=== PATIENT | male | born 1940 | race Caucasian/White ===

== ENCOUNTER 2016-11-09 02:36 | Observation (INO) | payer MEDICARE ==
[~2016-11-09] VITALS: Ht 167.6 cm; Wt 50.0 kg
[2016-11-09] VITALS (8 sets, daily range): BP systolic 168–186; BP diastolic 82–106; PULSE 91–104; RESP 18–23; TEMP 98.3; O2SAT 95–97
[~2016-11-09 02:36] MED LIST: ATOR20TA PO; LEVA750T PO; LORTA5 PO; MORP1INJ45 PO; PRED5 PO; PROT40TA PO; REST30CA PO; SUCR1TAB6 PO; TAMS0.4C67 PO; TRAM50TA PO; TRAZ50TA4 PO
[2016-11-09] MEDS ORDERED: SODIUM CHLOR 0.9% 1000 ML INJ 800 ML IV ONE (03:04)
[2016-11-09] MEDS ORDERED: VANCOMYCIN INJ 1,000 MG in SODIUM CHLOR 0.9% 250 ML INJ 250 ML IV STA (03:04)
[2016-11-09] MEDS ORDERED: AZTREONAM INJ 2,000 MG in SODIUM CHLORIDE 0.9% INJ 100 ML IV STA (03:04)
[2016-11-09] MEDS ORDERED: SODIUM CHLOR 0.9% 1000 ML INJ 1,000 ML IV ONE (03:04)
[2016-11-09] MEDS ORDERED: metroNIDAZOLE 500 MG INJ 100 ML IV STA (03:04)
[2016-11-09 03:46] LABS: AUTOMATED NEUTROPHIL # 14.7 TH/MM3 (1.8-7.7); BASOPHIL % 0.1 % (0.0-2.0); EOSINOPHIL # 0.3 TH/MM3 (0-0.4); EOSINOPHIL % 1.7 % (0.0-4.0); HEMO FLAGS DIFF FINAL; LYMPH % 3.9 % (9.0-44.0); LYMPHOCYTE # 0.7 TH/MM3 (1.0-4.8); MONO % 6.9 % (0.0-8.0); NEUT % 87.4 % (16.0-70.0); PLATELET COUNT 639 TH/MM3 (150-450); RED BLOOD COUNT 3.07 MIL/MM3 (4.50-5.90); RED CELL DISTRIBUTION WIDTH 14.6 % (11.6-17.2); WHITE BLOOD COUNT 16.8 TH/MM3 (4.0-11.0)
[2016-11-09 03:51] LABS: BLOOD, URINE NEG (NEG); GLUCOSE,URINE NEG (NEG); KETONE, URINE NEG (NEG); NITRITE,URINE NEG (NEG); PH, URINE 7.5 (5.0-8.5); URINE COLOR YELLOW (YELLW/STRAW)
[2016-11-09 03:52] LABS: COMMENT (UR) CATH-CULT NOT IND; CULTURE IF INDICATED CATH CULTURE NOT IND
[2016-11-09] MEDS ORDERED: IPRASOL INH (03:57)
[2016-11-09] MEDS ORDERED: MULT1TAB85 PO (03:57)
[2016-11-09] MEDS ORDERED: PROTPAK PO (03:57)
[2016-11-09] MEDS ORDERED: TEMA15CA PO ×2 (03:57→13:36)
[2016-11-09] MEDS ORDERED: ACET325T PO (03:57)
[2016-11-09] MEDS ORDERED: PRED10 PO (03:57)
[2016-11-09] MEDS ORDERED: HYDR-3288 PO ×2 (03:57→13:36)
[2016-11-09] MEDS ORDERED: METR500T10 PO (03:57)
[2016-11-09] MEDS ORDERED: ROBISYP8 PO (03:57)
[2016-11-09] MEDS ORDERED: LEVO500T3 PO (03:57)
[2016-11-09 04:19] LABS: ALT (GPT) 17 U/L (12-78); ANION GAP 6 MEQ/L (5-15); AST (GOT) 12 U/L (15-37); BICARBONATE 33.6 MEQ/L (21.0-32.0); BLOOD UREA NITROGEN 11 MG/DL (7-18); CHLORIDE 99 MEQ/L (98-107); GLOMERULAR FILTRATION RATE 117 ML/MIN (>89); POTASSIUM 3.5 MEQ/L (3.5-5.1); SODIUM (NA) 139 MEQ/L (136-145)
[2016-11-09 04:21] LABS: ALKALINE PHOSPHATASE 89 U/L (45-117); TOTAL BILIRUBIN ADULT 0.3 MG/DL (0.2-1.0)
[2016-11-09] MEDS ORDERED: IOHEXOL 350 MG/ML 10 ML VIAL (for RAD DIAG) IV ONE (04:35)
--- NOTE | 2016-11-09 05:23 | RADRPT ---
EXAM DATE/TIME: 11/09/2016 04:34 [facility] COMPARISON: No previous studies available for comparison. INDICATIONS : J-tube accidently pulled out. IV CONTRAST: 80 cc Omnipaque 350 (iohexol) IV ORAL CONTRAST: No oral contrast ingested. RADIATION DOSE: 5.76 CTDIvol (mGy) MEDICAL HISTORY : Hypertension. Gastroesophageal reflux disease. Cardiovascular disease SURGICAL HISTORY : Appendectomy. Cholecystectomy.Colon resection.Partial Gastrectomy. Kyphoplasty. ENCOUNTER: Initial ACUITY: 1 day PAIN SCALE: 0/10 LOCATION: abdomen TECHNIQUE: Volumetric scanning of the abdomen and pelvis was performed. Using automated exposure control and ad justment of the mA and/or kV according to patient size, radiation dose was kept as low as reasonably achievable to obtain optimal diagnostic quality images. FINDINGS: Moderate size bilateral pleural effusions are identified. There is subsegmental atelectasis in the b oth bases. The liver and spleen are normal in size and no focal defects are identified. The gallbladd er is absent. The pancreas demonstrates normal contour without evidence of mass or ductal dilatation. The adrenal glands and kidneys appear normal bilaterally. No hydronephrosis or mass lesions are iden tified. Examination of the pelvis demonstrates no evidence of free fluid or pelvic mass. No abnormally enlarg ed inguinal or retroperitoneal lymph nodes are present. The bladder is unremarkable. There is a moder ate amount of fecal material throughout the colon. CONCLUSION: 1. No evidence of acute abdominal or pelvic process. No masses are identified. 2. Moderate bilateral effusions 3. Constipation Jayson Kwan MD on November 09, 2016 at 5:18 Board Certified Radiologist. This report was verified electronically.
--- NOTE | 2016-11-09 05:29 | PD ---
HPI Chief Complaint: Clinical Coordinator Problem Time Seen by Provider: 02:50 Travel History International Travel<30 days: No Contact w/Intl Traveler<30days: No Traveled to known affect area: No History of Present Illness HPI The patient is 76 years old. He was discharged from [facility] a few days ago. He was admitted for failure to thrive evidently. Past medical history includes GERD, reflux esophagitis, recent weight loss of 40 pounds EPH as well. He's also had multiple abdominal surgeries including cholecystectomy appendectomy a Billroth II gastric surgery small bowel resection and bilateral knee replacements. He arrives to the ER [facility] because at his rehabilitation facility accidentally discontinued his gastric tube. The ER he reports pain with palpation of the abdominal wall. Otherwise she offers no specific complaint. PFSH Past Medical History Arthritis: Yes Cancer: Yes (BASAL CELL CANCER SKIN) Cardiovascular Problems: Yes (HEART MUMUR) Diabetes: No Diminished Hearing: No Endocrine: No Glaucoma: No Genitourinary: No Hepatitis: No Hiatal Hernia: No Hypertension: Yes Immune Disorder: No Medical other: Yes (ACID REFLUX) Musculoskeletal: No Neurologic: No Psychiatric: No Reproductive: No Respiratory: Yes (PNUEMONIA) Immunizations Current: Yes Thyroid Disease: No Tetanus Vaccination: < 5 Years Influenza Vaccination: Yes Past Surgical History Abdominal Surgery: Yes (APPY-PARTIAL GASTRECTOMY-INTESTINE SURGERY- CHOLECYSTECTOMY) Cholecystectomy: Yes Oral Surgery: Yes (TONSILS) Pacemaker: No Tonsillectomy: Yes Other Surgery: Yes (LUNG BIOPSY, SKIN BIOPSY BACK, J TUBE) Social History Alcohol Use: No Tobacco Use: No (QUIT 20 YRS AGO) Substance Use: No Allergies-Medications (Allergen,Severity, Reaction): Coded Allergies: Cleocin (Verified Allergy, Severe, RASH SWELLING, 11/09/16) Erythromycin (Verified Allergy, Severe, RASH SWELLING, 11/09/16) Penicillin (Verified Allergy, Severe, RASH SWELLING, 11/09/16) Reported Meds & Prescriptions Reported Meds & Active Scripts Active Reported Acetaminophen 325 Mg Tab 650 Mg PO Q4H PRN Metronidazole 500 Mg Tab 500 Mg PO TID Temazepam 15 Mg Cap 15 Mg PO HS PRN Duoneb (Ipratropium-Albuterol Neb) 0.5-2.5 Mg/3 Ml Neb 1 Nebule INH Q4HR NEB Levofloxacin 500 Mg Tab 500 Mg PO DAILY Prednisone 10 Mg Tab 10 Mg PO DAILY Protonix Liq (Pantoprazole Sodium) 40 Mg Pkt 40 Mg PO AC BREAKFAST Multivitamin Men (Multiple Vitamins W/ Minerals) 1 Tab Tab 1 Tab PO DAILY [place] (Hydrocodone-Acetaminophen) 7.5-325 mg Tab 1 Tab PO Q4H PRN Robitussin Peak Cold Dm 100-10 mg/5Ml (Dextromethorphan-Guaifenesin) 1 Syp Syp 10 Ml PO Q6HR PRN Review of Systems Except as stated in HPI: all other systems reviewed are Neg Physical Exam Narrative GENERAL: 76-year-old male well-nourished well-developed cooperative blood SKIN: Warm and dry. Along the anterior abdominal wall at site of insertion of his gastric tube there is some dermatitis presumably secondary to adhesive from dressing as well as tenderness and erythema. Purulent discharge appears expressible from the sight of insertion. HEAD: Atraumatic. Normocephalic. EYES: Pupils equal and round. No scleral icterus. No injection or drainage. ENT: No nasal bleeding or discharge. Mucous membranes pink and moist. NECK: Trachea midline. No JVD. CARDIOVASCULAR: Regular rate and rhythm. No murmur appreciated. RESPIRATORY: No accessory muscle use. Clear to auscultation. Breath sounds equal bilaterally. GASTROINTESTINAL: Abdomen soft, non-tender, nondistended. Hepatic and splenic margins not palpable. MUSCULOSKELETAL: No obvious deformities. No clubbing. No cyanosis. No edema. NEUROLOGICAL: Awake and alert. No obvious cranial nerve deficits. Motor grossly within normal limits. Normal speech. PSYCHIATRIC: Appropriate mood and affect; insight and judgment normal. Data Data Last Documented VS Vital Signs Date Time Temp Pulse Resp B/P Pulse Ox O2 Delivery O2 Flow Rate FiO2 11/09/16 03:10 97 Nasal Cannula 2 11/09/16 03:10 19 11/09/16 02:39 98.3 99 186/84 Orders Complete Blood Count With Diff (11/09/16 03:04) Comprehensive Metabolic Panel (11/09/16 03:04) Lactic Acid Sepsis Protocol (11/09/16 03:04) Urinalysis - C+S If Indicated (11/09/16 03:04) Blood Culture (11/09/16 03:04) Wound Culture And Gram Stain (11/09/16 03:04) Blood Glucose (11/09/16 03:04) Ecg Monitoring (11/09/16 03:04) Iv Access Insert/Monitor (11/09/16 03:04) Oximetry (11/09/16 03:04) Oxygen Administration (11/09/16 03:04) Ct Abd/Pel W Iv Contrast(Rout) (11/09/16 03:04) Aztreonam Inj (Azactam Inj) (11/09/16 03:04) Metronidazole 500 Mg Inj (Flagyl 500 Mg (11/09/16 03:04) Vancomycin Inj (Vancomycin Inj) (11/09/16 03:04) Sodium Chlor 0.9% 1000 Ml Inj (Ns 1000 M (11/09/16 03:04) Sodium Chlor 0.9% 1000 Ml Inj (Ns 1000 M (11/09/16 03:04) Iohexol 350 Inj (Omnipaque 350 Inj) (11/09/16 04:35) Hydromorphone Pf Inj (Dilaudid Pf Inj) (11/09/16 05:30) Admit Order (Ed Use Only) (11/09/16 05:44) Labs Laboratory Tests Test 11/09/16 11/09/16 03:00 03:15 White Blood Count 16.8 TH/MM3 Red Blood Count 3.07 MIL/MM3 Hemoglobin 8.9 GM/DL Hematocrit 27.0 % Mean Corpuscular Volume 88.0 FL Mean Corpuscular Hemoglobin 29.0 PG Mean Corpuscular Hemoglobin 33.0 % Concent Red Cell Distribution Width 14.6 % Platelet Count 639 TH/MM3 Mean Platelet Volume 7.0 FL Neutrophils (%) (Auto) 87.4 % Lymphocytes (%) (Auto) 3.9 % Monocytes (%) (Auto) 6.9 % Eosinophils (%) (Auto) 1.7 % Basophils (%) (Auto) 0.1 % Neutrophils # (Auto) 14.7 TH/MM3 Lymphocytes # (Auto) 0.7 TH/MM3 Monocytes # (Auto) 1.2 TH/MM3 Eosinophils # (Auto) 0.3 TH/MM3 Basophils # (Auto) 0.0 TH/MM3 CBC Comment DIFF FINAL Differential Comment Sodium Level 139 MEQ/L Potassium Level 3.5 MEQ/L Chloride Level 99 MEQ/L Carbon Dioxide Level 33.6 MEQ/L Anion Gap 6 MEQ/L Blood Urea Nitrogen 11 MG/DL Creatinine 0.66 MG/DL Estimat Glomerular Filtration 117 ML/MIN Rate Random Glucose 95 MG/DL Lactic Acid Level 0.8 mmol/L Calcium Level 7.7 MG/DL Total Bilirubin 0.3 MG/DL Aspartate Amino Transf 12 U/L (AST/SGOT) Alanine Aminotransferase 17 U/L (ALT/SGPT) Alkaline Phosphatase 89 U/L Total Protein 5.3 GM/DL Albumin 2.1 GM/DL Urine Color YELLOW Urine Turbidity CLEAR Urine pH 7.5 Urine Specific [place] 1.013 Urine Protein NEG mg/dL Urine Glucose (UA) NEG mg/dL Urine Ketones NEG mg/dL Urine Occult Blood NEG Urine Nitrite NEG Urine Bilirubin NEG Urine Urobilinogen LESS THAN 2.0 MG/DL Urine Leukocyte Esterase NEG Urine RBC LESS THAN 1 /hpf Urine WBC 1 /hpf Microscopic Urinalysis Comment CATH-CULT NOT IND MDM Medical Decision Making Medical Screen Exam Complete: Yes Emergency Medical Condition: Yes Medical Record Reviewed: Yes Differential Diagnosis Sepsis, abdominal wall abscess, intraperitoneal abscess, G tube discontinuation Narrative Course CBC & BMP Diagram 11/09/16 03:00 Albumen is 2.1 Lactic acid is 0.8 Urinalysis normal Last 24 hours Impressions Abdomen/Pelvis CT 11/09/16 0304 Signed Impressions: Service Date/Time: Wednesday, November 09, 2016 04:34 - CONCLUSION: 1. No evidence of acute abdominal or pelvic process. No masses are identified. 2. Moderate bilateral effusions 3. Constipation Jayson Kwan MD Vancomycin, Flagyl and aztreonam started. Blood cultures drawn. Patient will be admitted for IV hydration until time of placement of gastric tube. Case d/w Dr Brasher [facility]. Sepsis Criteria SIRS Criteria (2 or more): Heart rate over 90, WBC > 26303, < 4000 or > 10% bands Sepsis Criteria (SIRS+source): Infect source susp/known Diagnosis Primary Impression: PEG (percutaneous endoscopic gastrostomy) adjustment/replacement/removal Admitting Information Admitting Physician Requests: Admit Gibson Naidu MD Nov 09, 2016 05:29
[2016-11-09] MEDS ORDERED: HYDROmorphone HCL PF 1 MG/ML VIAL IV PUSH ONE (05:30)
[2016-11-09] MEDS ORDERED: NALOXONE HCL 0.4 MG/ML AMP IV PRN (06:15)
[2016-11-09] MEDS ORDERED: SODIUM CHLORIDE 0.9% FLUSH 5 ML FLUSH FLUSH PRN (06:15)
--- NOTE | 2016-11-09 08:28 | HHI.HP ---
[facility] Guillermo Frey MD Admission Diagnosis Sepsis (GI, Pleural Effusions), Gastric Tube Discotinue Diagnoses: Travel History International Travel<30 Days: No Contact w/Intl Traveler <30 Da: No Traveled to Known Affected Are: No History of Present Illness This is a 76-year-old male with a history of arthritis, basal skin cancer, hypertension, GERD and polymyalgia rheumatica, pneumonia in December 2014. Patient is a resident of [facility], on tube feeds when patient' s PEG tube was accidentally discontinued. Patient was then sent to the hospital for failure to try. Per patient, he does not know why he is here. He does not have any symptoms. He denies any chest pain, shortness of breath, palpitations, nausea, vomiting, fever, chills, urinary symptoms or diarrhea, he has a mild stomach pain from the PEG tube insertion chart but otherwise stable. He wants to eat, his appetite. Patient is oriented but a poor historian. Patient also has history of GERD and reflux esophagitis, allegedly lost about 40 pounds recently. Good bowel movements, good gas. Review of Systems ROS Limitations: Poor Historian, Other (All other pertinent systems were reviewed and are negative.) Past Family Social History Past Medical History Arthritis Basal skin cancer Hypertension GERD PMR Reflux esophagitis Past Surgical History Cholecystectomy Partial gastrectomy Tonsillectomy Lung biopsy Skin biopsy Billroth II gastric surgery Small bowel resection Bilateral knee replacement Reported Medications Acetaminophen 325 Mg Tab 650 Mg PO Q4H PRN Metronidazole 500 Mg Tab 500 Mg PO TID Temazepam 15 Mg Cap 15 Mg PO HS PRN Duoneb (Ipratropium-Albuterol Neb) 0.5-2.5 Mg/3 Ml Neb 1 Nebule INH Q4HR NEB Levofloxacin 500 Mg Tab 500 Mg PO DAILY Prednisone 10 Mg Tab 10 Mg PO DAILY Protonix Liq (Pantoprazole Sodium) 40 Mg Pkt 40 Mg PO AC BREAKFAST Multivitamin Men (Multiple Vitamins W/ Minerals) 1 Tab Tab 1 Tab PO DAILY [place] (Hydrocodone-Acetaminophen) 7.5-325 mg Tab 1 Tab PO Q4H PRN Robitussin Peak Cold Dm 100-10 mg/5Ml (Dextromethorphan-Guaifenesin) 1 Syp Syp 10 Ml PO Q6HR PRN Allergies: Coded Allergies: Cleocin (Verified Allergy, Severe, RASH SWELLING, 11/09/16) Erythromycin (Verified Allergy, Severe, RASH SWELLING, 11/09/16) Penicillin (Verified Allergy, Severe, RASH SWELLING, 11/09/16) Family History Negative for CA Social History Quit smoking 22 years ago, no significant alcohol use Physical Exam Vital Signs Vital Signs Date Time Temp Pulse Resp B/P Pulse Ox O2 Delivery O2 Flow Rate FiO2 11/09/16 06:19 96 Nasal Cannula 3.00 11/09/16 03:10 97 Nasal Cannula 2 11/09/16 03:10 19 97 Nasal Cannula 2 11/09/16 02:39 98.3 99 22 186/84 97 Physical Exam GENERAL: Not in acute distress, well-nourished. HEAD: Atraumatic. Normocephalic. No temporal or scalp tenderness. EYES: PERRL, full EOMs, no jaundice, nonicteric, pink conjunctivae without injection, moist mucosa ENT: Nose without bleeding, purulent drainage. Throat without erythema, tonsillar hypertrophy or exudate. Uvula midline. Airway patent. NECK: Trachea midline, no mass, no obvious thyromegaly. No JVD or lymphadenopathy. CARDIOVASCULAR: Regular rate and rhythm without murmurs, gallops, or rubs. RESPIRATORY: Clear to auscultation with normal respiratory effort. Breath sounds equal bilaterally. No use of accessory muscles of respiration. GASTROINTESTINAL: Abdomen soft, normal bowel sounds, non-tender, nondistended. No hepato-splenomegaly or palpable mass. PEG tube site clean but with surrounding erythema, almost like a Vanda skin infection. No bleeding. No discharge MUSCULOSKELETAL: Extremities without clubbing, cyanosis, or edema.. No calf tenderness. Distal pulses intact, 2+ bilaterally. INTEGUMENTARY: Warm and dry, no rash of generalized distribution. NEUROLOGICAL: Awake, alert, oriented 3. No obvious cranial nerve deficits. Moves all 4 extremities Laboratory Laboratory Tests Test 11/09/16 11/09/16 03:00 03:15 White Blood Count 16.8 Red Blood Count 3.07 Hemoglobin 8.9 Hematocrit 27.0 Mean Corpuscular Volume 88.0 Mean Corpuscular Hemoglobin 29.0 Mean Corpuscular Hemoglobin 33.0 Concent Red Cell Distribution Width 14.6 Platelet Count 639 Mean Platelet Volume 7.0 Neutrophils (%) (Auto) 87.4 Lymphocytes (%) (Auto) 3.9 Monocytes (%) (Auto) 6.9 Eosinophils (%) (Auto) 1.7 Basophils (%) (Auto) 0.1 Neutrophils # (Auto) 14.7 Lymphocytes # (Auto) 0.7 Monocytes # (Auto) 1.2 Eosinophils # (Auto) 0.3 Basophils # (Auto) 0.0 CBC Comment DIFF FINAL Differential Comment Sodium Level 139 Potassium Level 3.5 Chloride Level 99 Carbon Dioxide Level 33.6 Anion Gap 6 Blood Urea Nitrogen 11 Creatinine 0.66 Estimat Glomerular Filtration 117 Rate Random Glucose 95 Lactic Acid Level 0.8 Calcium Level 7.7 Total Bilirubin 0.3 Aspartate Amino Transf 12 (AST/SGOT) Alanine Aminotransferase 17 (ALT/SGPT) Alkaline Phosphatase 89 Total Protein 5.3 Albumin 2.1 Urine Color YELLOW Urine Turbidity CLEAR Urine pH 7.5 Urine Specific [place] 1.013 Urine Protein NEG Urine Glucose (UA) NEG Urine Ketones NEG Urine Occult Blood NEG Urine Nitrite NEG Urine Bilirubin NEG Urine Urobilinogen LESS THAN 2.0 Urine Leukocyte Esterase NEG Urine RBC LESS THAN 1 Urine WBC 1 Microscopic Urinalysis Comment CATH-CULT NOT IND Date/Time Procedure Status Source Growth 11/09/16 03:15 Gram Stain Received Wound Abdomen Pending 11/09/16 03:15 Wound Culture Received Wound Abdomen Pending 11/09/16 03:15 Aerobic Blood Culture Received Blood Peripheral Pending 11/09/16 03:15 Anaerobic Blood Culture Received Blood Peripheral Pending Result Diagram: 11/09/16 0300 11/09/16 0300 Imaging Last Impressions Abdomen/Pelvis CT 11/09/16 0304 Signed Impressions: Service Date/Time: Wednesday, November 09, 2016 04:34 - CONCLUSION: 1. No evidence of acute abdominal or pelvic process. No masses are identified. 2. Moderate bilateral effusions 3. Constipation Jayson Kwan MD Chest X-Ray 11/09/16 0000 Signed Impressions: Service Date/Time: Wednesday, November 09, 2016 08:36 - CONCLUSION: Small left pleural effusion. Rigo Ortiz MD Assessment and Plan Assessment and Plan This is a 76-year-old male with history of GERD, reflux esophagitis, presenting to the hospital with failure to thrive Failure to thrive-PEG tube accidentally removed, will have speech therapy evaluate the patient , if can take oral feeding, will start with that, start Megace , start calorie counting, start normal saline with D5. Recheck CMP tomorrow. CT scan of the abdomen personally reviewed unremarkable, only showed moderate bilateral effusion. Patient was given vancomycin and Flagyl this year now, doubt infection. Hold off for now. Leukocytosis, possible pneumonia-may be stress induced, rule out infection, continue Levaquin and Flagyl for [facility] from the [facility]. Recheck chest x- ray as above, urinalysis negative, recheck CBC tomorrow. Anemia-check iron panel GERD, reflux esophagitis-Protonix Hypertension-restart metoprolol Bilateral effusion-check chest x-ray, start Lasix, check urine output. Superficial abdominal skin candidiasis-miconazole cream GI prophylaxis: Protonix DVT prophylaxis: Lovenox Physician Certification 2 Midnight Certification Type: Admission for Inpatient Services Order for Inpatient Services The services are ordered in accordance with Medicare regulations or non- Medicare payer requirements, as applicable. In the case of services not specified as inpatient-only, they are appropriately provided as inpatient services in accordance with the 2-midnight benchmark. Estimated LOS (days): 2 days is the estimated time the patient will need to remain in the hospital, assuming treatment plan goals are met and no additional complications. Post-Hospital Plan: [facility] Jaden Tomlinson MD Nov 09, 2016 08:28
[2016-11-09] MEDS ORDERED: DEXT 5%-NACL 0.9% 1000 ML INJ 1,000 ML IV SCH (08:30)
[2016-11-09] MEDS ORDERED: SODIUM CHLORIDE 0.9% FLUSH 5 ML FLUSH FLUSH SCH (09:00)
--- NOTE | 2016-11-09 09:17 | RADRPT ---
EXAM DATE/TIME: 11/09/2016 08:36 [facility] COMPARISON: CHEST PA & LAT, January 09, 2015, 8:41. INDICATIONS : Evaluate for effusion MEDICAL HISTORY : Hypertension. Gastroesophageal reflux disease. Cardiovascular disease. SURGICAL HISTORY : Appendectomy. Cholecystectomy. Colon resection. Partial Gastrectomy. Kyphoplasty. ENCOUNTER: Initial ACUITY: 1 day PAIN SCORE: 0/10 LOCATION: Bilateral chest FINDINGS: PA and lateral views of the chest. Blunting of the left costophrenic sulcus indicating small left ple ural effusion. The lungs are clear. Cardiomediastinal silhouette within normal limits. No evidence of pneumothorax. CONCLUSION: Small left pleural effusion. Rigo Ortiz MD on November 09, 2016 at 9:13 Board Certified Radiologist. This report was verified electronically.
[2016-11-09] MEDS ORDERED: FUROSEMIDE 40 MG/4 ML VIAL IV PUSH ONE (11:00)
[2016-11-09] MEDS ORDERED: ENALAPRILAT 1.25 MG/ML VIAL IV PUSH PRN (11:00)
[2016-11-09] MEDS ORDERED: TEMAZEPAM 15 MG CAP PO PRN (11:00)
--- NOTE | 2016-11-09 11:37 | PD.CAR.PN ---
CVT Progress Note Subjective/Hospital Course: 76-year-old male recently admitted to [facility] for workup placement of the G-tube and related procedures Patient had a rapid decline with the failure to thrive and inability to eat and hands the G-tube placement Apparently a few days ago the G-tube fell out in the long-term and question arises where to go from here G-tube side is minimally open and I do not see any more drainage which might have been there before initially There is some irritation of the skin surrounding the site but no cellulitis or infection Gastroenterology will have to place another G-tube in this gentleman with understanding that he had previous Billroth II resection but on the CT scan the gastric pouch appears to be fairly large There are no issues at this time to be handled by general surgery but I will be available if any intervention is needed Thanks Teena Objective: Vital Signs Date Time Temp Pulse Resp B/P Pulse Ox O2 Delivery O2 Flow Rate FiO2 11/09/16 09:00 96 Nasal Cannula 11/09/16 08:00 98.3 94 18 168/82 96 2 11/09/16 07:00 104 19 175/90 96 Nasal Cannula 3.00 11/09/16 06:19 96 Nasal Cannula 3.00 11/09/16 03:10 97 Nasal Cannula 2 11/09/16 03:10 19 97 Nasal Cannula 2 11/09/16 02:39 98.3 99 22 186/84 97 Labs: Laboratory Tests Test 11/09/16 11/09/16 03:00 03:15 White Blood Count 16.8 TH/MM3 (4.0-11.0) Red Blood Count 3.07 MIL/MM3 (4.50-5.90) Hemoglobin 8.9 GM/DL (13.0-17.0) Hematocrit 27.0 % (39.0-51.0) Mean Corpuscular Volume 88.0 FL (80.0-100.0) Mean Corpuscular Hemoglobin 29.0 PG (27.0-34.0) Mean Corpuscular Hemoglobin 33.0 % Concent (32.0-36.0) Red Cell Distribution Width 14.6 % (11.6-17.2) Platelet Count 639 TH/MM3 (150-450) Mean Platelet Volume 7.0 FL (7.0-11.0) Neutrophils (%) (Auto) 87.4 % (16.0-70.0) Lymphocytes (%) (Auto) 3.9 % (9.0-44.0) Monocytes (%) (Auto) 6.9 % (0.0-8.0) Eosinophils (%) (Auto) 1.7 % (0.0-4.0) Basophils (%) (Auto) 0.1 % (0.0-2.0) Neutrophils # (Auto) 14.7 TH/MM3 (1.8-7.7) Lymphocytes # (Auto) 0.7 TH/MM3 (1.0-4.8) Monocytes # (Auto) 1.2 TH/MM3 (0-0.9) Eosinophils # (Auto) 0.3 TH/MM3 (0-0.4) Basophils # (Auto) 0.0 TH/MM3 (0-0.2) CBC Comment DIFF FINAL Differential Comment Sodium Level 139 MEQ/L (136-145) Potassium Level 3.5 MEQ/L (3.5-5.1) Chloride Level 99 MEQ/L (98-107) Carbon Dioxide Level 33.6 MEQ/L (21.0-32.0) Anion Gap 6 MEQ/L (5-15) Blood Urea Nitrogen 11 MG/DL (7-18) Creatinine 0.66 MG/DL (0.60-1.30) Estimat Glomerular Filtration 117 ML/MIN Rate (>89) Random Glucose 95 MG/DL (74-106) Lactic Acid Level 0.8 mmol/L (0.4-2.0) Calcium Level 7.7 MG/DL (8.5-10.1) Total Bilirubin 0.3 MG/DL (0.2-1.0) Aspartate Amino Transf 12 U/L (15-37) (AST/SGOT) Alanine Aminotransferase 17 U/L (12-78) (ALT/SGPT) Alkaline Phosphatase 89 U/L (45-117) Total Protein 5.3 GM/DL (6.4-8.2) Albumin 2.1 GM/DL (3.4-5.0) Urine Color YELLOW (YELLW/STRAW) Urine Turbidity CLEAR (CLEAR) Urine pH 7.5 (5.0-8.5) Urine Specific [place] 1.013 (1.002-1.035) Urine Protein NEG mg/dL (NEG-TRACE) Urine Glucose (UA) NEG mg/dL (NEG) Urine Ketones NEG mg/dL (NEG) Urine Occult Blood NEG (NEG) Urine Nitrite NEG (NEG) Urine Bilirubin NEG (NEG) Urine Urobilinogen LESS THAN 2.0 MG/DL (LESS THAN 2.0) Urine Leukocyte Esterase NEG (NEG) Urine RBC LESS THAN 1 /hpf (0-3) Urine WBC 1 /hpf (0-5) Microscopic Urinalysis Comment CATH-CULT NOT IND Result Diagram: 11/09/1629911/09/16299 Graham Mcallister MD Nov 09, 2016 11:37
[2016-11-09] MEDS ORDERED: ENOXAPARIN SODIUM 40 MG/0.4 ML SYRINGE SQ SCH (12:00)
[2016-11-09] MEDS ORDERED: MEGESTROL ACETATE SUSP 400 MG/10 ML CUP PO SCH (12:00)
[2016-11-09] MEDS ORDERED: PANTOPRAZOLE SOD 40 MG DELAYED RELEASE TAB PO SCH (12:00)
[2016-11-09] MEDS ORDERED: METOPROLOL TARTRATE 25 MG TAB PO SCH (12:00)
[2016-11-09] MEDS ORDERED: metroNIDAZOLE 500 MG TAB PO SCH (13:00)
--- NOTE | 2016-11-09 13:13 | HHI.PR ---
Subjective Subjective Notes Pt here from [facility], after feeding jejeunostomy tube fell out. he has no recall of events. His daughter is at bedside, she is always anxious. he also has an I and of L abdominal wall abscess, which no one commented on though at least three physician's have seen him here. he has not been eating much, he has been getting nocturnal tube feeds. Objective Vitals/I&O Vital Signs Date Time Temp Pulse Resp B/P Pulse Ox O2 Delivery O2 Flow Rate FiO2 11/09/16 12:00 104 23 174/87 97 Nasal Cannula 2 11/09/16 08:00 98.3 Labs Laboratory Tests Test 11/09/16 11/09/16 03:00 03:15 White Blood Count 16.8 Red Blood Count 3.07 Hemoglobin 8.9 Hematocrit 27.0 Mean Corpuscular Volume 88.0 Mean Corpuscular Hemoglobin 29.0 Mean Corpuscular Hemoglobin 33.0 Concent Red Cell Distribution Width 14.6 Platelet Count 639 Mean Platelet Volume 7.0 Neutrophils (%) (Auto) 87.4 Lymphocytes (%) (Auto) 3.9 Monocytes (%) (Auto) 6.9 Eosinophils (%) (Auto) 1.7 Basophils (%) (Auto) 0.1 Neutrophils # (Auto) 14.7 Lymphocytes # (Auto) 0.7 Monocytes # (Auto) 1.2 Eosinophils # (Auto) 0.3 Basophils # (Auto) 0.0 CBC Comment DIFF FINAL Differential Comment Sodium Level 139 Potassium Level 3.5 Chloride Level 99 Carbon Dioxide Level 33.6 Anion Gap 6 Blood Urea Nitrogen 11 Creatinine 0.66 Estimat Glomerular Filtration 117 Rate Random Glucose 95 Lactic Acid Level 0.8 Calcium Level 7.7 Total Bilirubin 0.3 Aspartate Amino Transf 12 (AST/SGOT) Alanine Aminotransferase 17 (ALT/SGPT) Alkaline Phosphatase 89 Total Protein 5.3 Albumin 2.1 Urine Color YELLOW Urine Turbidity CLEAR Urine pH 7.5 Urine Specific [place] 1.013 Urine Protein NEG Urine Glucose (UA) NEG Urine Ketones NEG Urine Occult Blood NEG Urine Nitrite NEG Urine Bilirubin NEG Urine Urobilinogen LESS THAN 2.0 Urine Leukocyte Esterase NEG Urine RBC LESS THAN 1 Urine WBC 1 Microscopic Urinalysis Comment CATH-CULT NOT IND Date/Time Procedure Status Source Growth 11/09/16 03:15 Gram Stain - Final Resulted Wound Abdomen 11/09/16 03:15 Wound Culture Resulted Wound Abdomen Pending 11/09/16 03:15 Aerobic Blood Culture Received Blood Peripheral Pending 11/09/16 03:15 Anaerobic Blood Culture Received Blood Peripheral Pending Radiology Ct abdomen and pelvis was reviewed, no acute intra abdominal process seen. Cardiovascular: Regular Lungs: Clear Abdomen: Other (soft and non distended, mild tenderness around J tube site, skin irritation present, c/w small intestinal contents chronically draining on the skin.), Post-op tenderness (In L abdomen there is an I and D site with purulent drainage, there is no erythema, which is completely improved.) Extremities: No edema, Perfused A/P Assessment and Plan Postop day 16 from revision B2 to tray en y Gastro jejeunostomy, feeding j tube , and I and d L abdominal wall abscess. His abdominal wall has less erythema. I replaced a 16 icelandic jejeunostomy tube, placed 3.5 cc of water in the balloon , and snugly placed the flange to the abdominal skin. I tied a 0 silk tie around the flange to the tube in attempts at minimizing drainage around the tube. I cleansed the I and D site with peroxide and saline and dressed it with a half inch iodoform guaze wick and dressed with 4x4 s and paper tape. I d/w the bedside nurse and the patient and his daughter. i will order a gastrograffin study through the tube to confirm/document adequate position. I called and talked to the nurse clothing supervisor at [facility] to go over all the details of his care. They will talk to daughter about arranging a sitter for bedside. He needs this feeding tube or he will continue to deteriorate due to porr oral intake. i have communicated this bluntly to the patient and family. I have a call out to dr Tomlinson. Jayson Avendano MD Nov 09, 2016 13:13
[2016-11-09] MEDS ORDERED: ACETAMINOPHEN/HYDROcodone 325 MG/10 MG TAB PO ONE (13:30)
[2016-11-09] MEDS ORDERED: FURO1TAB62 PO (13:42)
[2016-11-09] MEDS ORDERED: DIATRIZOATE MEGLUM/DIATRIZOATE SOD 120 ML BTL (for RAD DIAG) J-TUBE ONE (14:03)
--- NOTE | 2016-11-09 15:03 | RADRPT ---
EXAM DATE/TIME: 11/09/2016 13:47 [place] COMPARISON: CT ABDOMEN & PELVIS W CONTRAST, November 09, 2016, 4:34. INDICATIONS : Evaluate placement of J tube MEDICAL HISTORY : Hypertension. Gastroesophageal reflux disease. Cardiovascular disease. SURGICAL HISTORY : Appendectomy. Colon resection. Cholecystectomy. ENCOUNTER: Subsequent ACUITY: 1 day PAIN SCORE: 4/10 LOCATION: Abdomen FINDINGS: Single AP view of the abdomen. Contrast was injected into the jejunostomy tube. The tip of the cathet er is intraluminal as contrast is seen within the small bowel lumen. CONCLUSION: Jejunostomy tube tip in the small bowel lumen. Rigo Ortiz MD on November 09, 2016 at 15:00 Board Certified Radiologist. This report was verified electronically.
[2016-11-09] MEDS ORDERED: RESP: ALBUTEROL 2.5 MG/IPRATROPIUM 0.5 MG NEB (SCH) INH (16:00)
[2016-11-09] MEDS ORDERED: MICONAZOLE NITRATE 2% CREAM 15 GM TOPICAL SCH (21:00)
[2016-11-09] MEDS ORDERED: DOCUSATE SODIUM 50 MG/SENNA 8.6 MG TAB PO SCH (21:00)
[2016-11-10 04:12] LABS: FERRITIN 72 NG/ML (26-388); FREE T3 1.44 PG/ML (2.18-3.98); FREE T4 1.42 NG/DL (0.76-1.46); TRANSFERRIN IRON PROFILE 146 MG/DL (200-360)
[2016-11-10] MEDS ORDERED: predniSONE 10 MG TAB PO SCH (09:00)
[2016-11-10] MEDS ORDERED: LEVOFLOXACIN 500 MG TAB PO SCH (09:00)
[2016-11-10] MEDS ORDERED: MULTIVITAMINS/MINERALS THERAPEUTIC TAB PO SCH (09:00)
== END 2016-11-09 17:35 | disposition home or self-care (01) ==
LOC: NEPE 02:36 → INTOOBSV 05:46 → NEDA 05:46 → UNDODEPER 11-10 22:11
PROVIDERS: ADMIT Hospitalist; ATTEND Hospitalist
DX: L02.211 Cutaneous abscess of abdominal wall (principal); R62.7 Adult failure to thrive; K59.00 Constipation, unspecified; K21.0 Gastro-esophageal reflux disease with esophagitis; A41.9 Sepsis, unspecified organism; B37.2 Candidiasis of skin and nail; B96.89 Other specified bacterial agents as the cause of diseases classified elsewhere; R63.4 Abnormal weight loss; J90 Pleural effusion, not elsewhere classified; I10 Essential (primary) hypertension; M35.3 Polymyalgia rheumatica; Z85.828 Personal history of other malignant neoplasm of skin; Z87.01 Personal history of pneumonia (recurrent); Z87.891 Personal history of nicotine dependence; Z90.3 Acquired absence of stomach [part of]; Z96.653 Presence of artificial knee joint, bilateral
CPT/HCPCS: 71020; 74000; 74177; 80053; 81001; 82728; 83540; 83550; 83605; 84439; 84443; 84481; 85025; 87040; 87070; 87205; 96365; 96375; 97163; 99285; G0378; G8987; G8988; J1170; J1650; J1940; J3370; J7030; J7042; J7050; Q9963; Q9967

== ENCOUNTER → 2017-01-01 | Outpatient (CLI) | payer MEDICARE ==
[~2017-01-01] MED LIST changes: +ACET325T PO; -ATOR20TA PO; +FURO1TAB62 PO; +HYDR-3288 PO; +IPRASOL INH; -LEVA750T PO; +LEVO500T3 PO; -LORTA5 PO; +METR500T10 PO; -MORP1INJ45 PO; +MULT1TAB85 PO; +PRED10 PO; -PRED5 PO; -PROT40TA PO; +PROTPAK PO; -REST30CA PO; +ROBISYP8 PO; -SUCR1TAB6 PO; -TAMS0.4C67 PO; +TEMA15CA PO; -TRAM50TA PO; -TRAZ50TA4 PO
== END ==
LOC: PLAB 08:33
PROVIDERS: ATTEND Surgery
DX: Z93.4 Other artificial openings of gastrointestinal tract status (principal)
CPT/HCPCS: 36415; 84134

== ENCOUNTER → 2017-01-19 | Outpatient (CLI) | payer MEDICARE | LOC: PLAB 07:58 | PROVIDERS: ATTEND Surgery Trauma Surgery | DX: E88.09 Other disorders of plasma-protein metabolism, not elsewhere classified (principal); Z93.4 Other artificial openings of gastrointestinal tract status | CPT/HCPCS: 36415; 84134 ==

== ENCOUNTER → 2017-03-02 | Outpatient (CLI) | payer MEDICARE ==
[2017-03-02 09:14] LABS: HEMATOCRIT 37.5 % (39.0-51.0); MEAN CELL VOLUME 85.4 FL (80.0-100.0); MEAN CORPUSCULAR HEMOGLOBIN 28.4 PG (27.0-34.0); MEAN CORPUSCULAR HGB CONC 33.2 % (32.0-36.0); PLATELET COUNT 382 TH/MM3 (150-450); RED CELL DISTRIBUTION WIDTH 14.8 % (11.6-17.2); REVIEW FLAG FINAL; WHITE BLOOD COUNT 8.1 TH/MM3 (4.0-11.0)
[2017-03-02 09:42] LABS: ANION GAP 9 MEQ/L (5-15); AST (GOT) 16 U/L (15-37); BICARBONATE 27.5 MEQ/L (21.0-32.0); BLOOD UREA NITROGEN 13 MG/DL (7-18); CHLORIDE 105 MEQ/L (98-107); GLOMERULAR FILTRATION RATE 83 ML/MIN (>89); GLUCOSE,FASTING 91 MG/DL (74-99); POTASSIUM 4.5 MEQ/L (3.5-5.1); SODIUM (NA) 141 MEQ/L (136-145)
[2017-03-02 09:53] LABS: ALKALINE PHOSPHATASE 121 U/L (45-117); ALT (GPT) 18 U/L (12-78); HDL CHOLESTEROL 65.8 MG/DL (40.0-60.0); LDL CHOLESTEROL 20 MG/DL (0-99); LDL CHOLESTEROL DIRECT 27 MG/DL (0-99); TOTAL BILIRUBIN ADULT 0.2 MG/DL (0.2-1.0)
[2017-03-02 16:52] LABS: HEMOGLOBIN A1a 1.4 %; HEMOGLOBIN Ao 81.9 %; HEMOGLOBIN F 1.4 %; HEMOGLOBIN LA1C 2.1 %; HEMOGLOBIN P3 6.4 %
== END ==
LOC: PLAB 06:41
PROVIDERS: ATTEND Family Medicine
DX: I25.10 Atherosclerotic heart disease of native coronary artery without angina pectoris (principal); R53.83 Other fatigue; E78.2 Mixed hyperlipidemia; I10 Essential (primary) hypertension
CPT/HCPCS: 36415; 80053; 80061; 83036; 83721; 84443; 85027

== ENCOUNTER → 2017-05-28 | Outpatient (CLI) | payer MEDICARE ==
[2017-05-28 13:33] LABS: MEAN CELL VOLUME 90.9 FL (80.0-100.0); MEAN CORPUSCULAR HEMOGLOBIN 29.9 PG (27.0-34.0); MEAN CORPUSCULAR HGB CONC 32.9 % (32.0-36.0); PLATELET COUNT 437 TH/MM3 (150-450); RED BLOOD COUNT 4.51 MIL/MM3 (4.50-5.90); REVIEW FLAG FINAL; WHITE BLOOD COUNT 12.5 TH/MM3 (4.0-11.0)
[2017-05-28 13:46] LABS: ANION GAP 7 MEQ/L (5-15); AST (GOT) 16 U/L (15-37); BICARBONATE 29.2 MEQ/L (21.0-32.0); BLOOD UREA NITROGEN 13 MG/DL (7-18); CHLORIDE 98 MEQ/L (98-107); GLOMERULAR FILTRATION RATE 73 ML/MIN (>89); GLUCOSE,FASTING 98 MG/DL (74-99); POTASSIUM 4.5 MEQ/L (3.5-5.1); SODIUM (NA) 134 MEQ/L (136-145)
[2017-05-28 13:50] LABS: ALKALINE PHOSPHATASE 128 U/L (45-117); ALT (GPT) 16 U/L (12-78); HDL CHOLESTEROL 80.2 MG/DL (40.0-60.0); LDL CHOLESTEROL 22 MG/DL (0-99); LDL CHOLESTEROL DIRECT 38 MG/DL (0-99); TOTAL BILIRUBIN ADULT 0.3 MG/DL (0.2-1.0)
[2017-05-28 16:19] LABS: HEMOGLOBIN A1a 0.9 %; HEMOGLOBIN A1b 0.9 %; HEMOGLOBIN Ao 83.3 %; HEMOGLOBIN F 1.5 %; HEMOGLOBIN LA1C 2.1 %; HEMOGLOBIN P3 4.1 %
== END ==
LOC: PLAB 09:24
PROVIDERS: ATTEND Family Medicine
DX: I25.10 Atherosclerotic heart disease of native coronary artery without angina pectoris (principal); E11.9 Type 2 diabetes mellitus without complications; E78.2 Mixed hyperlipidemia; I10 Essential (primary) hypertension
CPT/HCPCS: 36415; 80053; 80061; 83036; 83721; 85027

== ENCOUNTER → 2017-07-23 | Outpatient (CLI) | payer MEDICARE ==
[2017-07-23 13:24] LABS: HEMATOCRIT 40.7 % (39.0-51.0); HEMOGLOBIN 13.5 GM/DL (13.0-17.0); MEAN CELL VOLUME 91.1 FL (80.0-100.0); MEAN CORPUSCULAR HEMOGLOBIN 30.1 PG (27.0-34.0); MEAN CORPUSCULAR HGB CONC 33.1 % (32.0-36.0); MEAN PLATELET VOLUME 7.2 FL (7.0-11.0); PLATELET COUNT 365 TH/MM3 (150-450); RED BLOOD COUNT 4.46 MIL/MM3 (4.50-5.90); RED CELL DISTRIBUTION WIDTH 13.7 % (11.6-17.2); WHITE BLOOD COUNT 8.4 TH/MM3 (4.0-11.0)
[2017-07-23 13:48] LABS: ALBUMIN 3.6 GM/DL (3.4-5.0); AST (GOT) 18 U/L (15-37); BICARBONATE 29.8 MEQ/L (21.0-32.0); BLOOD UREA NITROGEN 13 MG/DL (7-18); CHLORIDE 103 MEQ/L (98-107); CHOLESTEROL 135 MG/DL (120-200); CREATININE 1.04 MG/DL (0.60-1.30); GLOMERULAR FILTRATION RATE 69 ML/MIN (>89); GLUCOSE,FASTING 104 MG/DL (74-99); SODIUM (NA) 141 MEQ/L (136-145)
[2017-07-23 13:58] LABS: ALKALINE PHOSPHATASE 119 U/L (45-117); ALT (GPT) 19 U/L (12-78); CHOLESTEROL/ HDL RATIO 1.56 RATIO; HDL CHOLESTEROL 86.4 MG/DL (40.0-60.0); LDL CHOLESTEROL 31 MG/DL (0-99); LDL CHOLESTEROL DIRECT 53 MG/DL (0-99); TOTAL BILIRUBIN ADULT 0.3 MG/DL (0.2-1.0); TOTAL PROTEIN 7.7 GM/DL (6.4-8.2); TRIGLYCERIDES 88 MG/DL (42-150)
[2017-07-23 14:27] LABS: HEMOGLOBIN A1C 6.6 % (4.3-6.0)
== END ==
LOC: PLAB 08:35
PROVIDERS: ATTEND Family Medicine
DX: I25.10 Atherosclerotic heart disease of native coronary artery without angina pectoris (principal); E11.9 Type 2 diabetes mellitus without complications; E78.4 Other hyperlipidemia; I10 Essential (primary) hypertension
CPT/HCPCS: 36415; 80053; 80061; 83036; 83721; 85027

== ENCOUNTER → 2017-10-28 | Outpatient (CLI) | payer MEDICARE ==
[~2017-10-28] MED LIST changes: +METR1TAB76 PO; -METR500T10 PO
[2017-10-28 09:28] LABS: HEMOGLOBIN 13.3 GM/DL (13.0-17.0); MEAN CORPUSCULAR HEMOGLOBIN 30.6 PG (27.0-34.0); MEAN PLATELET VOLUME 7.2 FL (7.0-11.0); PLATELET COUNT 311 TH/MM3 (150-450); RED BLOOD COUNT 4.33 MIL/MM3 (4.50-5.90); RED CELL DISTRIBUTION WIDTH 13.6 % (11.6-17.2); WHITE BLOOD COUNT 7.2 TH/MM3 (4.0-11.0)
[2017-10-28 09:46] LABS: ALBUMIN 3.6 GM/DL (3.4-5.0); AST (GOT) 17 U/L (15-37); BICARBONATE 27.5 MEQ/L (21.0-32.0); BLOOD UREA NITROGEN 13 MG/DL (7-18); CALCIUM 8.9 MG/DL (8.5-10.1); CHLORIDE 107 MEQ/L (98-107); CHOLESTEROL 117 MG/DL (120-200); CREATININE 0.91 MG/DL (0.60-1.30); GLOMERULAR FILTRATION RATE 81 ML/MIN (>89); GLUCOSE,FASTING 99 MG/DL (74-99); SODIUM (NA) 141 MEQ/L (136-145)
[2017-10-28 09:49] LABS: ALKALINE PHOSPHATASE 148 U/L (45-117); ALT (GPT) 18 U/L (12-78); CHOLESTEROL/ HDL RATIO 1.68 RATIO; HDL CHOLESTEROL 69.4 MG/DL (40.0-60.0); LDL CHOLESTEROL 34 MG/DL (0-99); LDL CHOLESTEROL DIRECT 46 MG/DL (0-99); TOTAL BILIRUBIN ADULT 0.4 MG/DL (0.2-1.0); TOTAL PROTEIN 7.4 GM/DL (6.4-8.2); TRIGLYCERIDES 68 MG/DL (42-150)
[2017-10-28 17:00] LABS: HEMOGLOBIN A1C 6.4 % (4.3-6.0)
== END ==
LOC: PLAB 07:35
PROVIDERS: ATTEND Family Medicine
DX: I25.10 Atherosclerotic heart disease of native coronary artery without angina pectoris (principal); E11.9 Type 2 diabetes mellitus without complications; E78.5 Hyperlipidemia, unspecified
CPT/HCPCS: 36415; 80053; 80061; 83036; 83721; 85027

== ENCOUNTER → 2018-01-19 | Outpatient (CLI) | payer MEDICARE ==
[2018-01-19 14:08] LABS: HEMATOCRIT 39.1 % (39.0-51.0); HEMOGLOBIN 13.2 GM/DL (13.0-17.0); MEAN CELL VOLUME 90.2 FL (80.0-100.0); MEAN CORPUSCULAR HEMOGLOBIN 30.5 PG (27.0-34.0); MEAN CORPUSCULAR HGB CONC 33.9 % (32.0-36.0); MEAN PLATELET VOLUME 7.4 FL (7.0-11.0); PLATELET COUNT 337 TH/MM3 (150-450); RED BLOOD COUNT 4.33 MIL/MM3 (4.50-5.90); RED CELL DISTRIBUTION WIDTH 13.5 % (11.6-17.2); WHITE BLOOD COUNT 9.7 TH/MM3 (4.0-11.0)
[2018-01-19 14:13] LABS: ALBUMIN 3.7 GM/DL (3.4-5.0); ALT (GPT) 18 U/L (12-78); AST (GOT) 19 U/L (15-37); BICARBONATE 28.7 MEQ/L (21.0-32.0); BLOOD UREA NITROGEN 13 MG/DL (7-18); CALCIUM 9.1 MG/DL (8.5-10.1); CHLORIDE 106 MEQ/L (98-107); CHOLESTEROL 132 MG/DL (120-200); CREATININE 1.02 MG/DL (0.60-1.30); GLOMERULAR FILTRATION RATE 71 ML/MIN (>89); GLUCOSE,FASTING 100 MG/DL (74-99); SODIUM (NA) 142 MEQ/L (136-145); TRIGLYCERIDES 79 MG/DL (42-150)
[2018-01-19 14:15] LABS: ALKALINE PHOSPHATASE 125 U/L (45-117); CHOLESTEROL/ HDL RATIO 1.81 RATIO; HDL CHOLESTEROL 72.9 MG/DL (40.0-60.0); LDL CHOLESTEROL 43 MG/DL (0-99); LDL CHOLESTEROL DIRECT 58 MG/DL (0-99); TOTAL BILIRUBIN ADULT 0.3 MG/DL (0.2-1.0); TOTAL PROTEIN 7.7 GM/DL (6.4-8.2)
== END ==
LOC: PLAB 09:14
PROVIDERS: ATTEND Family Medicine
DX: I25.10 Atherosclerotic heart disease of native coronary artery without angina pectoris (principal); E78.2 Mixed hyperlipidemia; I10 Essential (primary) hypertension
CPT/HCPCS: 36415; 80053; 80061; 83721; 85027

== ENCOUNTER 2018-04-15 09:43 | Inpatient (IN) ==
--- NOTE | 2018-04-15 10:25 | ED ---
HPI General Chief complaint: Fall Stated complaint: Fall X Lastnight/Back Pain Time Seen by Provider: 04/15/18 10:02 Related Data Home Medications Medication Instructions Recorded Confirmed Sleep Time 04/15/18 hydrocodone-acetaminophen 1 tab PO Q4-6H PRN 04/15/18 04/15/18 Previous Rx's Medication Instructions Recorded amlodipine [Norvasc] 5 mg PO DAILY #31 tab 04/17/18 cyclobenzaprine 10 mg PO Q8HR PRN #20 tab 04/17/18 famotidine 20 mg PO HS #31 tab 04/17/18 levofloxacin [Levaquin] 500 mg PO DAILY #3 tab 04/17/18 Allergies Allergy/AdvReac Type Severity Reaction Status Date / Time clindamycin Allergy Severe RASH Verified 04/15/18 09:47 SWELLING erythromycin base Allergy Severe RASH Verified 04/15/18 09:47 SWELLING penicillin G Allergy Severe RASH Verified 04/15/18 09:47 SWELLING Review of Systems Except as stated in HPI: all other systems reviewed are negative (Patient presents with history of fractured vertebra to thoracolumbar region several years ago takes hydrocodone for treatment. Patient had unknown etiology for slip and fall however no recollection of loss of consciousness or weakness with his recollection. This occurred 2 days ago patient has serious disability ambulates not respond hydrocodone. No numbness or weakness of lower extremities patient has no other injury secondary to fall. Patient is alert and functional with no evidence of confusion. No evidence of abdominal problems or urinary abnormalities. 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 However patient has had no medical evaluation and only the home health care reported to the patient and family of a mini stroke. There has not been a CT or other evaluations to document this fact) Constitutional Reports as per HPI and Reports frequent falls (5 falls last couple months) Eyes Reports other [facility] Medical History Medical History History of back injury (Acute) Surgical History Surgical History Hx of bilateral cataract extraction (Acute) Hx of cholecystectomy (Acute) Social History Social History Substance History: No History of Abuse Second Hand Smoke Exposure: No Smoking Status: Former smoker Tobacco Type: Cigarettes How Often Do You Have a Drink Containing Alcohol: Never Recent Travel in [facility] within the Last 8 Weeks: No Recent Out of Country Travel within the Last 8 Weeks: No Immunization History Tetanus Immunization: Unsure Hx Influenza Vaccine This Season: No Exam Narrative Exam Narrative: GENERAL: Patient is in wheelchair and was able to help getting out but has significant back pain that makes it impossible for him to do this individual. Alert and oriented. SKIN: Focused skin assessment warm/dry. HEAD: Atraumatic. Normocephalic except for left facial weakness EYES: Pupils equal and round. No scleral icterus. No injection or drainage. ENT: No nasal bleeding or discharge. Mucous membranes pink and moist. NECK: Trachea midline. No JVD. CARDIOVASCULAR: Regular rate and rhythm. No murmur appreciated. RESPIRATORY: No accessory muscle use. Clear to auscultation. Breath sounds equal bilaterally. GASTROINTESTINAL: Abdomen soft, non-tender, nondistended. Hepatic and splenic margins not palpable. MUSCULOSKELETAL: No obvious deformities. No clubbing. No cyanosis. No edema. Significant tenderness to the thoracolumbar region exacerbated percussion of spinous processes at TL level. NEUROLOGICAL: Awake and alert. No obvious cranial nerve deficits. Motor grossly within normal limits. Normal speech. PSYCHIATRIC: Appropriate mood and affect; insight and judgment normal. Course Reevaluation(s) Reevaluation #1: Patient signed-out pending results of CTA. He was found to have RLL pneumonia and room air hypoxia but no evidence of PE. He will need IV antibiotics, supplemental O2, and re-evaluation at frequent intervals. I explained these results to the patient as well as plan to keep him in the hospital, he understands and agrees. Time: 17:10 Initial Documented Vital Signs Temperature 99.1 F 04/15/18 09:47 Pulse Rate 124 H 04/15/18 09:47 Respiratory Rate 16 04/15/18 09:47 Blood Pressure 179/92 H 04/15/18 09:47 Pulse Oximetry 85 L 04/15/18 09:47 Last Documented Vital Signs Temperature 96.9 F L 04/17/18 12:00 Pulse Rate 77 04/17/18 12:00 Respiratory Rate 20 04/17/18 12:00 Blood Pressure 142/71 H 04/17/18 12:00 Pulse Oximetry 93 L 04/17/18 12:00 Medical Decision Making Lab Data Result diagrams: 04/16/18 05:42 04/16/18 05:42 Lab Results 04/15/18 04/15/18 04/15/18 Range/Units 10:03 10:20 10:20 CBC w Diff Auto diff final WBC 20.0 H (4.0-11.0) th/mm3 RBC 4.50 (4.50-5.90) mil/mm3 Hgb 13.6 (13.0-17.0) gm/dL Hct 41.1 (39.0-51.0) % MCV 91.4 (80.0-100.0) fL MCH 30.2 (27.0-34.0) pg MCHC 33.1 (32.0-36.0) % RDW 12.7 (11.6-17.2) % Plt Count 367 (150-450) th/mm3 MPV 7.4 (7.0-11.0) fL Neut % (Auto) 91.1 H (16.0-70.0) % Lymph % (Auto) 2.5 L (9.0-44.0) % Edgar % (Auto) 3.7 (0.0-8.0) % Eos % (Auto) 0.5 (0.0-4.0) % Baso % (Auto) 2.2 H (0.0-2.0) % Neut # (Auto) 18.3 H (1.8-7.7) th/mm3 Lymph # (Auto) 0.5 L (1.0-4.8) th/mm3 Edgar # (Auto) 0.7 (0.0-0.9) th/mm3 Eos # (Auto) 0.1 (0.0-0.4) th/mm3 Baso # (Auto) 0.4 H (0.0-0.2) th/mm3 WBC Differential . Differential Comment . Sodium (136-145) meq/L Potassium (3.5-5.1) meq/L Chloride (98-107) meq/L Carbon Dioxide (21.0-32.0) meq/L Anion Gap (5-15) meq/L BUN (7-18) mg/dL Creatinine (0.60-1.30) mg/dL Estimated GFR (>89) mL/min POC Glucose 130 H (68-110) mg/dl Random Glucose Cancelled Calcium (8.5-10.1) mg/dL Total Bilirubin (0.2-1.0) mg/dL AST (15-37) U/L ALT (12-78) U/L Alkaline Phosphatase (45-117) U/L Troponin I (0.02-0.05) ng/mL Total Protein (6.4-8.2) g/dL Albumin (3.4-5.0) g/dL Ur Collection Type Urine Color (Yellw/Straw) Urine Clarity (Clear) Urine pH (5.0-8.5) Ur Specific [place] (1.002-1.035) Urine Protein (Neg-Trace) mg/dL Urine Glucose (UA) (Negative) mg/dL Urine Ketones (Negative) mg/dL Urine Occult Blood (Negative) Urine Nitrate (Negative) Urine Bilirubin (Negative) Urine Urobilinogen (Less than 2) mg/dL Ur Leukocyte Esterase (Negative) Urine RBC (0-3) /hpf Ur Squamous Epith Cells (0-5) /hpf Micro UA Comment Urine Culture Comments 04/15/18 04/15/18 04/15/18 Range/Units 10:20 11:18 19:50 CBC w Diff WBC (4.0-11.0) th/mm3 RBC (4.50-5.90) mil/mm3 Hgb (13.0-17.0) gm/dL Hct (39.0-51.0) % MCV (80.0-100.0) fL MCH (27.0-34.0) pg MCHC (32.0-36.0) % RDW (11.6-17.2) % Plt Count (150-450) th/mm3 MPV (7.0-11.0) fL Neut % (Auto) (16.0-70.0) % Lymph % (Auto) (9.0-44.0) % Edgar % (Auto) (0.0-8.0) % Eos % (Auto) (0.0-4.0) % Baso % (Auto) (0.0-2.0) % Neut # (Auto) (1.8-7.7) th/mm3 Lymph # (Auto) (1.0-4.8) th/mm3 Edgar # (Auto) (0.0-0.9) th/mm3 Eos # (Auto) (0.0-0.4) th/mm3 Baso # (Auto) (0.0-0.2) th/mm3 WBC Differential Differential Comment Sodium 139 (136-145) meq/L Potassium 4.0 (3.5-5.1) meq/L Chloride 103 (98-107) meq/L Carbon Dioxide 27.5 (21.0-32.0) meq/L Anion Gap 9 (5-15) meq/L BUN 12 (7-18) mg/dL Creatinine 0.86 (0.60-1.30) mg/dL Estimated GFR 86 L (>89) mL/min POC Glucose (68-110) mg/dl Random Glucose 134 H Calcium 8.6 (8.5-10.1) mg/dL Total Bilirubin 0.4 (0.2-1.0) mg/dL AST 13 L (15-37) U/L ALT 18 (12-78) U/L Alkaline Phosphatase 107 (45-117) U/L Troponin I Less than 0.02 L (0.02-0.05) ng/mL Total Protein 7.7 (6.4-8.2) g/dL Albumin 3.8 (3.4-5.0) g/dL Ur Collection Type Clean catch Urine Color Yellow Yellow (Yellw/Straw) Urine Clarity Clear Clear (Clear) Urine pH 5.5 6.0 (5.0-8.5) Ur Specific [place] Less/equal 1.005 Less/equal 1.005 (1.002-1.035) Urine Protein Negative Negative (Neg-Trace) mg/dL Urine Glucose (UA) Negative Negative (Negative) mg/dL Urine Ketones Negative Negative (Negative) mg/dL Urine Occult Blood Negative Negative (Negative) Urine Nitrate Negative Negative (Negative) Urine Bilirubin Negative Negative (Negative) Urine Urobilinogen 0.2 0.2 (Less than 2) mg/dL Ur Leukocyte Esterase Negative Negative (Negative) Urine RBC 0-3 (0-3) /hpf Ur Squamous Epith Cells 0-5 (0-5) /hpf Micro UA Comment Culture not ind Urine Culture Comments Culture not ind 04/16/18 04/16/18 Range/Units 05:42 05:42 CBC w Diff Auto diff final WBC 11.9 H (4.0-11.0) th/mm3 RBC 3.86 L (4.50-5.90) mil/mm3 Hgb 12.0 L (13.0-17.0) gm/dL Hct 34.6 L (39.0-51.0) % MCV 89.7 (80.0-100.0) fL MCH 31.0 (27.0-34.0) pg MCHC 34.5 (32.0-36.0) % RDW 13.0 (11.6-17.2) % Plt Count 287 (150-450) th/mm3 MPV 7.5 (7.0-11.0) fL Neut % (Auto) 79.4 H (16.0-70.0) % Lymph % (Auto) 9.6 (9.0-44.0) % Edgar % (Auto) 8.5 H (0.0-8.0) % Eos % (Auto) 2.0 (0.0-4.0) % Baso % (Auto) 0.5 (0.0-2.0) % Neut # (Auto) 9.5 H (1.8-7.7) th/mm3 Lymph # (Auto) 1.1 (1.0-4.8) th/mm3 Edgar # (Auto) 1.0 H (0.0-0.9) th/mm3 Eos # (Auto) 0.2 (0.0-0.4) th/mm3 Baso # (Auto) 0.1 (0.0-0.2) th/mm3 WBC Differential . Differential Comment . Sodium 140 (136-145) meq/L Potassium 4.0 (3.5-5.1) meq/L Chloride 104 (98-107) meq/L Carbon Dioxide 28.9 (21.0-32.0) meq/L Anion Gap 7 (5-15) meq/L BUN 9 (7-18) mg/dL Creatinine 0.85 (0.60-1.30) mg/dL Estimated GFR 87 L (>89) mL/min POC Glucose (68-110) mg/dl Random Glucose 114 H Calcium 8.4 L (8.5-10.1) mg/dL Total Bilirubin (0.2-1.0) mg/dL AST (15-37) U/L ALT (12-78) U/L Alkaline Phosphatase (45-117) U/L Troponin I (0.02-0.05) ng/mL Total Protein (6.4-8.2) g/dL Albumin (3.4-5.0) g/dL Ur Collection Type Urine Color (Yellw/Straw) Urine Clarity (Clear) Urine pH (5.0-8.5) Ur Specific [place] (1.002-1.035) Urine Protein (Neg-Trace) mg/dL Urine Glucose (UA) (Negative) mg/dL Urine Ketones (Negative) mg/dL Urine Occult Blood (Negative) Urine Nitrate (Negative) Urine Bilirubin (Negative) Urine Urobilinogen (Less than 2) mg/dL Ur Leukocyte Esterase (Negative) Urine RBC (0-3) /hpf Ur Squamous Epith Cells (0-5) /hpf Micro UA Comment Urine Culture Comments Imaging Data Radiologist's impression: Head CT 04/15/18 11:25 CONCLUSION: Chest X-Ray 04/15/18 13:46 CONCLUSION: Chest CTA 04/15/18 15:26 CONCLUSION: Discharge Plan Discharge Disposition Patient Disposition: 30 Still Patient Discharge Condition Condition: Stable Discharge Order Discharge Orders: Discharge Order (Routine); Ordered 04/17/18 Ordered By: Norah Salazar Discharge Details Anticipated Discharge Date: 04/17/18 Diagnosis: CAP (community acquired pneumonia), Hypoxia Physicians Team ED Provider: Daphne Dimas Primary Care Provider: Guillermo Frey Attending Provider: Norah Salazar Status ED Status: Left Department Discharge Information Discharge Date/Time: 04/15/18 21:05
[2018-04-15 10:47] LABS: Baso # (Auto) 0.4 th/mm3 (0.0-0.2); Baso % (Auto) 2.2 % (0.0-2.0); Eos # (Auto) 0.1 th/mm3 (0.0-0.4); Eos % (Auto) 0.5 % (0.0-4.0); Hematocrit 41.1 % (39.0-51.0); Hemoglobin 13.6 gm/dL (13.0-17.0); Lymph # (Auto) 0.5 th/mm3 (1.0-4.8); Lymph % (Auto) 2.5 % (9.0-44.0); Mean Corpuscular HGB Conc 33.1 % (32.0-36.0); Mean Corpuscular Hemoglobin 30.2 pg (27.0-34.0); Mean Corpuscular Volume 91.4 fL (80.0-100.0); Mean Platelet Volume 7.4 fL (7.0-11.0); Mono # (Auto) 0.7 th/mm3 (0.0-0.9); Mono % (Auto) 3.7 % (0.0-8.0); Neut # (Auto) 18.3 th/mm3 (1.8-7.7); Neut % (Auto) 91.1 % (16.0-70.0); Platelet Count 367 th/mm3 (150-450); Red Cell Distribution Width 12.7 % (11.6-17.2)
--- NOTE | 2018-04-15 10:59 | CT ---
EXAM DATE: 04/15/2018 10:51 AM EDT AGE/SEX: 77 years / Male INDICATIONS: Trauma. Fall. Low back pain. History of multiple spine fractures status post kyphopla sty. CLINICAL DATA: This is the patient's initial encounter. Patient reports that signs and symptoms have been present for 2 days and indicates a pain score of 10/10. MEDICAL/SURGICAL HISTORY: . Fracture in thoracic/lumbar region. Cholecystectomy. Back surgery. RADIATION DOSE: 13.74 CTDI (mGy) COMPARISON: [facility], SPINE LUMBAR LTD (AP & LAT), 07/13/2014. . TECHNIQUE: Contiguous axial images were acquired with a multirow detector CT scanner without contras t. Multiplanar reconstructions in the sagittal and coronal plane were also performed. Using automate d exposure control and adjustment of the mA and/or kV according to patient size, radiation dose was k ept as low as reasonably achievable to obtain optimal diagnostic quality images. DICOM format image data is available electronically for review and comparison. FINDINGS: Vertebrae: Compression fracture deformities of the T12 L4 vertebral bodies are again noted patient i s status post interval kyphoplasty. Compression fracture is mild T12 level and moderate to severe at L4 level. There is mild retropulsion posterior superior aspect of the L4 vertebral body. The other ve rtebral bodies are intact. There is mild osteopenia. Discs: There is mild disc space narrowing L3-4 and L4-5 levels Alignment: Normal. No subluxation. Axial images again demonstrate the fractures of the T12 and L1 bodies status post kyphoplasty. The ot her vertebral bodies and posterior elements are intact with no evidence of acute fracture. There are mild degenerative changes involving the facet joints. There is mild retropulsion of the posterior sup erior aspect of the L4 vertebral body with mass effect on the anterior thecal sac. There is a disc os teophyte complex at the L4-5 level and there is mild to moderate central canal stenosis. There is lat eral recess stenosis as well. There is narrowing of the neural foramina bilaterally. An annular disc bulge is also present in the L3-4 level with mild flattening the anterior thecal sac and mild central canal stenosis. . CONCLUSION: 1. No definite acute fracture or malalignment. 2. Chronic compression fracture deformities of T12 and L4 vertebral bodies status post kyphoplasty. 3. Chronic retropulsion of the posterior superior aspect of L4 with evidence of spinal stenosis. 4. Disc osteophyte complex at L4-5 with mild to moderate central canal stenosis and lateral recess s tenosis. 5. Disc bulge at L3-4 with mild central canal stenosis. Electronically signed by: Bruno Rock MD 04/15/2018 10:58 AM EDT
[2018-04-15 11:09] LABS: Chloride 103 meq/L (98-107); Sodium 139 meq/L (136-145)
[2018-04-15 11:12] LABS: Albumin 3.8 g/dL (3.4-5.0); Anion Gap 9 meq/L (5-15); Calcium 8.6 mg/dL (8.5-10.1); Carbon Dioxide 27.5 meq/L (21.0-32.0); Glucose,Random 134 mg/dL (74-106)
[2018-04-15 11:13] LABS: Blood Urea Nitrogen 12 mg/dL (7-18)
[2018-04-15 11:15] LABS: Alanine Aminotransferase 18 U/L (12-78); Aspartate Aminotransferase 13 U/L (15-37)
[2018-04-15 11:16] LABS: Glomerular Filtration Rate 86 mL/min (>89)
[2018-04-15 11:17] LABS: Total Protein 7.7 g/dL (6.4-8.2)
[2018-04-15 11:18] LABS: Alkaline Phosphatase 107 U/L (45-117)
[2018-04-15 11:48] LABS: Bilirubin,Urine Negative (Negative); Clarity,Urine Clear (Clear); Color,Urine Yellow (Yellw/Straw); Glucose,Urine (UA) Negative (Negative); Leukocyte Esterase,Urine Negative (Negative); Nitrite,Urine Negative (Negative); PH,Urine 5.5 (5.0-8.5); Specific Gravity,Urine Less/Equal 1.005 (1.002-1.035); Urobilinogen,Urine 0.2 mg/dL (Less than 2)
[2018-04-15 11:55] LABS: RBC,Urine 0-3 /hpf (0-3); Squamous Epithelial Cell,Urine 0-5 /hpf (0-5)
--- NOTE | 2018-04-15 13:03 | CT ---
EXAM DATE: 04/15/2018 12:23 PM EDT AGE/SEX: 77 years / Male INDICATIONS: Trauma. Fall. Weakness. CLINICAL DATA: This is the patient's initial encounter. Patient reports that signs and symptoms have been present for 2 days and indicates a pain score of 0/10. MEDICAL/SURGICAL HISTORY: Renal calculi. Hypertension. Tonsillectomy. Back surgery. RADIATION DOSE: 61.20 CTDI (mGy) COMPARISON: . TECHNIQUE: CT of the head without contrast. Using automated exposure control and adjustment of the mA and/or kV according to patient size, radiation dose was kept as low as reasonably achievable to ob tain optimal diagnostic quality images. DICOM format image data is available electronically for revi ew and comparison. FINDINGS: Cerebrum: The ventricles are normal for age. No evidence of midline shift, mass lesion, hemorrhage or acute infarction. No extraaxial fluid collections are seen. Posterior Fossa: The cerebellum and brainstem are intact. The 4th ventricle is midline. The cerebe llopontine angle is unremarkable. Extracranial: Mucoperiosteal thickening seen of the visualized paranasal sinuses. There is masslike area in the visualized right maxillary air cell. There are fluid levels in the bilateral sphenoid sin uses. Skull: The calvaria is intact. No evidence of skull fracture. 1. No acute intracranial abnormality demonstrated. 2. Extensive paranasal sinus disease partly utilized. . Electronically signed by: Joseph Mascorro MD 04/15/2018 1:02 PM EDT
--- NOTE | 2018-04-15 14:02 | ECG ---
Date Performed: 04/15/2018 Time Performed: 10:06:22 PTAGE: 77 years EKG: SINUS TACHYCARDIA ABNORMAL RHYTHM ECG Compared to prior electrocardiogram, rate has increas ed. PREVIOUS TRACING : 01/04/2015 03.26 DOCTOR: Gamaliel Graff Interpretating Date/Time 04/15/2018 14:01:21
--- NOTE | 2018-04-15 14:31 | XR ---
EXAM DATE: 04/15/2018 2:23 PM EDT AGE/SEX: 77 years / Male INDICATIONS: . Shortness of breath. CLINICAL DATA: This is the patient's initial encounter. Patient reports that signs and symptoms have been present for 1 day and indicates a pain score of 0/10. MEDICAL/SURGICAL HISTORY: Stroke. Hypertension. Gastroesophageal reflux disease. Cardiovascular disease None. COMPARISON: [facility], XR CHEST PA AND LAT, 03/09/2017. . FINDINGS: Bibasilar patchiness is noted consistent with probable atelectasis and/or pneumonia superimposed on c hronic emphysematous changes and interstitial fibrosis. The heart is stable. There is right hilar pro minence which may represent a prominent pulmonary artery although lymphadenopathy or hilar mass also should be considered in the differential. CT of the chest with contrast would be helpful for further evaluation if clinically indicated. Mild scoliosis of the thoracic spine is noted. 1. Bibasilar patchiness is noted consistent with probable atelectasis and/or pneumonia superimposed on chronic emphysematous changes and interstitial fibrosis. 2. Right hilar prominence which may represent a prominent pulmonary artery although lymphadenopathy or hilar mass also should be considered in the differential. CT of the chest with contrast would be h elpful for further evaluation if clinically indicated. 3. Mild scoliosis of the thoracic spine. Electronically signed by: Flaquito Vences MD 04/15/2018 2:30 PM EDT
--- NOTE | 2018-04-15 16:32 | CT ---
EXAM DATE: 04/15/2018 4:20 PM EDT AGE/SEX: 77 years / Male INDICATIONS: Fell 2 days ago. Weakness. Hypoxia. CLINICAL DATA: This is the patient's initial encounter. Patient reports that signs and symptoms have been present for 2 days and indicates a pain score of 0/10. MEDICAL/SURGICAL HISTORY: Cerebrovascular disease. Renal calculi. Hypertension. . Lumbar surgery. RADIATION DOSE: 7.09 CTDI (mGy) COMPARISON: [facility], CT CHEST W/ CONTRAST, 07/07/2016. . TECHNIQUE: Volumetric scanning was performed using a multi-row detector CT scanner during bolus infu sedrick of 70 ml Omnipaque 350 (iohexol) nonionic water-soluble contrast as a single exam dose. The lindsay a was post processed with a variety of visualization algorithms including full volume maximum intensi ty projection and sliding thin slab reformation. Using automated exposure control and adjustment of t he mA and/or kV according to patient size, radiation dose was kept as low as reasonably achievable to obtain optimal diagnostic quality images. DICOM format image data is available electronically for r eview and comparison. FINDINGS: Pulmonary Arteries: No filling defects are seen in the pulmonary arteries out to the subsegmental ve ssels. The left and right pulmonary arteries are normal in diameter. Lung: There is stable nodular scarring again noted in the left lung apex along the right upper fissu re. New reticular nodular fine opacities are now noted throughout the right lung. There is more conso lidative infiltrate in the right lower lobe. There are no larger masses. The left lung remains clear. Effusion: None. Mediastinum: No evidence of mediastinal or hilar adenopathy. Coronary artery calcifications are pres ent. Other: The axilla is unremarkable. The patient is status post cholecystectomy. There are surgical cl ips in the region the gastroesophageal junction. 1. No evidence of pulmonary embolism. 2. New mild fine reticular nodule opacities are now present throughout the right lung most consisten t with pneumonia. There is more consolidative opacity in the right lower lobe. The left lung is clear . Electronically signed by: Bruno Rock MD 04/15/2018 4:30 PM EDT
[2018-04-15] MEDS ORDERED: Bisacodyl 10 MG Supp RECTAL PRN (17:32)
--- NOTE | 2018-04-15 17:48 | P.HPIM ---
History of Present Illness Primary Care Physician: Guillermo Frey MD Chief Complaint: Fall at home with back pain History of Present Illness: This is a 77-year-old gentleman who lives alone and has chronic back pain from previous chronic vertebral fractures. Apparently he fell yesterday today and was unable to ambulate well back pain. He is brought in the hospital by his family. Patient reports no numbness or paresthesias in the extremities but inability to ambulate steadily. Patient thinks he may have had a stroke several weeks ago. He has no inpatient evaluation of this but says he felt weak 5 weeks ago and that weakness has since resolved. Patient notes no confusion, no loss of consciousness. He is quite weak and dehydrated appearing. He appears quite malnourished. In the past the patient has had pneumonia and was treated with antibiotics. He is also had a feeding tube due to some severe dysphasia although it is not clear as to the nature of the dysphasia. Patient reports some weight loss although it is unquantified. Reports he is hungry but does not have any trouble eating. He has been admitted to the emergency room due to this discomfort and apparent weight loss with overt cachexia on exam. Patient in his evaluation did have a chest x-ray right upper lobe pneumonia. Patient has leukocytosis and tachycardia - Diagnosis (1) Sepsis due to pneumonia (2) History of back injury (3) Elevated BP without diagnosis of hypertension (4) Malnutrition Review of Systems All other systems reviewed negative except as stated in HPI PMFSH - History History Provided By: Patient, Family Member - Medical History Medical History: Medical History (Last Updated 04/15/18 @ 17:42 by Norah Salazar MD) History of back injury (Acute) Arthritis GERD (gastroesophageal reflux disease) - Surgical History Surgical History: Surgical History (Last Reviewed 04/15/18 @ 17:42 by Norah Salazar MD) Hx of bilateral cataract extraction (Acute) Hx of cholecystectomy (Acute) - Tobacco History Second Hand Smoke Exposure: No Tobacco Use In Past 30 Days: No Smoking Status: Former smoker - Alcohol History How Often Do You Have a Drink Containing Alcohol: Never - Substance Use History Substance History: No History of Abuse - Travel History Recent Travel in the [place] Within the Last 8 Weeks: No Recent Travel Out of the Country Within the Last 8 Weeks: No - Immunization History Tetanus Immunization: Unsure Hx Influenza Vaccine This Season: No Medications and Allergies Active Medications: Active Medications Fluconazole (Diflucan) 200 mg PO ONCE ONE Stop: 04/16/18 15:37 Levofloxacin/Dextrose (Levaquin 750 Mg Premix Inj) 150 mls @ 100 mls/hr IV.SIG ONCE ONE Stop: 04/15/18 18:11 Last Admin: 04/15/18 16:56 Dose: 100 mls/hr Allergies Allergy/AdvReac Type Severity Reaction Status Date / Time clindamycin Allergy Severe RASH Verified 04/15/18 09:47 SWELLING erythromycin base Allergy Severe RASH Verified 04/15/18 09:47 SWELLING penicillin G Allergy Severe RASH Verified 04/15/18 09:47 SWELLING Home Medications Medication Instructions Recorded Confirmed Type Sleep Time 04/15/18 History hydrocodone-acetaminophen 1 tab PO Q4-6H PRN 04/15/18 04/15/18 History Exam Vital signs: Vital Signs 04/15/18 09:47 04/15/18 10:59 04/15/18 11:28 Temperature 99.1 F Pulse Rate 124 H 103 H Respiratory Rate 16 20 20 Blood Pressure 179/92 H 168/87 H Pulse Oximetry 85 L 96 04/15/18 13:46 04/15/18 16:38 04/15/18 16:55 Temperature 99.4 F Pulse Rate 105 H 103 H Respiratory Rate 22 22 20 Blood Pressure 152/89 H 192/86 H Pulse Oximetry 93 L 95 Intake & Output 04/14/18 04/15/18 04/15/18 18:59 06:59 18:59 Weight 78.4 kg Narrative: GENERAL: Patient calm resting thin and chronically ill appearing gentleman with dry mucous membranes SKIN: Warm and dry. No rashes or ecchymotic injuries EYES: Pupils equal and round. No scleral icterus. No injection or drainage. ENT: External ear exam normal. No acute nasal bleeding or discharge. Mucous membranes pink and moist. CARDIOVASCULAR: Sinus tachycardia. nO murmurs gallops or rubs appreciated RESPIRATORY: Good air flow and effort without accessory muscle use. Clear to auscultation. Breath sounds equal bilaterally. GASTROINTESTINAL: Abdomen soft, non-tender, nondistended. Hepatic and splenic margins not palpable. MUSCULOSKELETAL: Extremities without clubbing, cyanosis, or edema. No obvious deformities. NEUROLOGICAL: Awake and alert. No obvious cranial nerve deficits. Motor grossly within normal limits. Five out of 5 muscle strength in the arms and legs. Normal speech. Results - Labs CBC & Chem 7: 04/15/18 10:20 04/15/18 10:20 Labs: Short CBC 04/15/18 Range/Units 10:20 WBC 20.0 H (4.0-11.0) th/mm3 Hgb 13.6 (13.0-17.0) gm/dL Hct 41.1 (39.0-51.0) % Plt Count 367 (150-450) th/mm3 BMP 04/15/18 10:20 Sodium 139 Potassium 4.0 Chloride 103 Carbon Dioxide 27.5 BUN 12 Creatinine 0.86 Calcium 8.6 Cardiac Enzymes 04/15/18 Range/Units 10:20 Troponin I Less than 0.02 L (0.02-0.05) ng/mL Liver Function 04/15/18 Range/Units 10:20 Total Bilirubin 0.4 (0.2-1.0) mg/dL AST 13 L (15-37) U/L ALT 18 (12-78) U/L Alkaline Phosphatase 107 (45-117) U/L Albumin 3.8 (3.4-5.0) g/dL Urine 04/15/18 Range/Units 11:18 Urine Color Yellow (Yellw/Straw) Urine Clarity Clear (Clear) Urine pH 5.5 (5.0-8.5) Ur Specific [place] Less/equal 1.005 (1.002-1.035) Urine Protein Negative (Neg-Trace) mg/dL Urine Glucose (UA) Negative (Negative) mg/dL - Imaging Impressions Head CT 04/15/18 11:25 CONCLUSION: Chest X-Ray 04/15/18 13:46 CONCLUSION: Chest CTA 04/15/18 15:26 CONCLUSION: Caprini VTE Risk Assessment Caprini VTE Risk Assessment: Moderate/High Risk (score >= 2) Caprini Risk Assessment Model: Point Value = 1 Point Value = 2 Point Value = 3 Point Value = 5 Age 41-60 Minor surgery BMI > 25 kg/m2 Swollen legs Varicose veins or History of unexplained or recurrent spontaneous Oral contraceptives or hormone replacement Sepsis (< 1 month) Serious lung disease, including pneumonia (< 1 month) Abnormal pulmonary function Acute myocardial infarction Congestive heart failure (< 1 month) History of inflammatory bowel disease Medical patient at bed rest Age 61-74 Arthroscopic surgery Major open surgery (> 45 min) Laparoscopic surgery (> 45 min) Malignancy Confined to bed (> 72 hours) Immobilizing plaster cast Central venous access Age >= 75 History of VTE Family history of VTE Factor V Leiden Prothrombin [id number] Lupus anticoagulant Anticardiolipin antibodies Elevated serum homocysteine Heparin-induced thrombocytopenia Other congenital or acquired thrombophilia Stroke (< 1 month) Elective arthroplasty Hip, pelvis, or leg fracture Acute spinal cord injury (< 1 month) Prophylaxis Regimen: Total Risk Factor Score Risk Level Prophylaxis Regimen 0-1 Low Early ambulation 2 Moderate Order ONE of the following: *Sequential Compression Device (SCD) *Heparin 5000 units SQ BID 3-4 Higher Order ONE of the following medications: *Heparin 5000 units SQ TID *Enoxaparin/Lovenox 40 mg SQ daily (WT < 150 kg, CrCl > 30 mL/min) *Enoxaparin/Lovenox 30 mg SQ daily (WT < 150 kg, CrCl > 10-29 mL/min) *Enoxaparin/Lovenox 30 mg SQ BID (WT < 150 kg, CrCl > 30 mL/min) AND/OR *Sequential Compression Device (SCD) 5 or more Highest Order ONE of the following medications: *Heparin 5000 units SQ TID (Preferred with Epidurals) *Enoxaparin/Lovenox 40 mg SQ daily (WT < 150 kg, CrCl > 30 mL/min) *Enoxaparin/Lovenox 30 mg SQ daily (WT < 150 kg, CrCl > 10-29 mL/min) *Enoxaparin/Lovenox 30 mg SQ BID (WT < 150 kg, CrCl > 30 mL/min) AND *Sequential Compression Device (SCD) Assessment and Plan - Assessment (1) Sepsis due to pneumonia Code(s): J18.9 - Pneumonia, unspecified organism; A41.9 - Sepsis, unspecified organism Status: Acute Plan: Continue with IV antibiotics Levaquin Patient with leukocytosis and tachycardia Follow-up sputum is available Continue IV hydration Rule out aspiration (2) History of back injury Code(s): Z87.828 - Personal history of other (healed) physical injury and trauma Status: Acute Plan: Resume home hydrocodone Continue with PT eval (3) Elevated BP without diagnosis of hypertension Code(s): R03.0 - Elevated blood-pressure reading, without diagnosis of hypertension Status: Acute Plan: Continue with Vasotec as needed for hypertension (4) Malnutrition Code(s): E46 - Unspecified protein-calorie malnutrition Status: Acute - Plan Discussed Condition With: ER , patient
[2018-04-15] MEDS ORDERED: Levofloxacin 500 mg Premix Inj 500 MG/100 ML PIGGYBACK IV.SIG SCH (18:00)
[2018-04-15] MEDS: Enoxaparin Inj 40 MG/0.4 ML Syringe SQ SCH (18:19)
[2018-04-15 20:03] LABS: Bilirubin,Urine Negative (Negative); Clarity,Urine Clear (Clear); Color,Urine Yellow (Yellw/Straw); Glucose,Urine (UA) Negative (Negative); Leukocyte Esterase,Urine Negative (Negative); Nitrite,Urine Negative (Negative); Specific Gravity,Urine Less/Equal 1.005 (1.002-1.035); Urobilinogen,Urine 0.2 mg/dL (Less than 2)
[2018-04-15] MEDS: Famotidine 20 MG Tablet PO SCH (20:31)
[2018-04-15] MEDS: Temazepam 15 MG Capsule PO PRN (23:16)
[2018-04-16 06:17] LABS: Baso # (Auto) 0.1 th/mm3 (0.0-0.2); Baso % (Auto) 0.5 % (0.0-2.0); Eos # (Auto) 0.2 th/mm3 (0.0-0.4); Hematocrit 34.6 % (39.0-51.0); Lymph # (Auto) 1.1 th/mm3 (1.0-4.8); Lymph % (Auto) 9.6 % (9.0-44.0); Mean Corpuscular HGB Conc 34.5 % (32.0-36.0); Mean Corpuscular Volume 89.7 fL (80.0-100.0); Mean Platelet Volume 7.5 fL (7.0-11.0); Mono % (Auto) 8.5 % (0.0-8.0); Neut # (Auto) 9.5 th/mm3 (1.8-7.7); Neut % (Auto) 79.4 % (16.0-70.0); Platelet Count 287 th/mm3 (150-450); Red Blood Count 3.86 mil/mm3 (4.50-5.90); White Blood Count 11.9 th/mm3 (4.0-11.0)
[2018-04-16 06:31] LABS: Calcium 8.4 mg/dL (8.5-10.1); Carbon Dioxide 28.9 meq/L (21.0-32.0)
--- NOTE | 2018-04-16 09:00 | P.DIET ---
Nutritional Evaluation Type of nutrition evaluation: initial Nutrition consult regarding: Diet Evaluation Nutrition screening: [facility] [place]: 04/15 [facility] [place] Malnutrition Subjective Subjective Comments: Pt reports some weight loss but also reports he is hungry and eats well. Objective - Diagnosis PNA, Hypoxia - Objective [place] body weight: 148 kg % IBW: 82 Body Weight Used for Calculations: Actual (54.9kg) Energy Needs - Lower Range (kCal/kg): 33 Energy Needs - Upper Range (kCal/kg): 38 Lower Limit kCal/kg (kCals): 1,812 Upper Limit kCal/kg (kCals): 2,086 Lower Limit Protein Factor (Grams per Kg): 1.2 Upper Limit Protein Factor (Grams per Kg): 1.5 Lower Protein Needs (Protein): 66 Upper Protein Needs (Protein): 82 Fluid Factor (ml/kg): 33 Estimated Fluid Needs (ml): 1,812 Dietitian Reviewed in Medical Record: Current diet, Curent medications, Intake & Output, Labs, Medical history Diet Order: Regular Objective Comments: PMH: Arthritis, GERD, back injury, previous feeding tube for dysphagia Meds include: Reglan Labes include: WBC 11.9, Glucose 114 Feeding - Current PO Supplement Current Supplement: Ensure Enlive Current Supplement Flavor: Vanilla Current Frequency of Supplement: Three times a day Current kCals Provided by Supplement: 350 Current Protein Provided by Supplement: 20 Assessment Assessment: Pt at nutritional risk r/t dx. Pt admitted with PNA and hypoxia. Verbalizes some wt loss, pt is only at 82% his ideal body weight. He states he is hungry and he ate 100% of the one meal recorded in [employer]. Pt's nutritional needs as assessed above. He is receiving Ensure Enlive for added nutrition. Will monitor po intake for adequacy. Recommendations: Regular diet with Ensure Enlive TID Dietitian to Monitor: Lab values, Supplement acceptance, Intake & Output, Diet tolerance, Weight change, PO Intake
--- NOTE | 2018-04-16 13:11 | P.PNIM ---
Subjective Interval history: Patient seen and evaluated in follow-up for pneumonia Doing well. Tolerating diet. No new Physical Exam Vital signs: Vital Signs 04/15/18 13:46 04/15/18 16:38 04/15/18 16:55 Temperature 99.4 F Pulse Rate 105 H 103 H Respiratory Rate 22 22 20 Blood Pressure 152/89 H 192/86 H Pulse Oximetry 93 L 95 04/15/18 18:35 04/15/18 20:34 04/15/18 21:00 Temperature 97.6 F Pulse Rate 101 H 98 H 82 Respiratory Rate 22 20 18 Blood Pressure 157/87 H 156/84 H 167/79 H Pulse Oximetry 95 95 95 04/15/18 21:39 04/16/18 00:00 04/16/18 01:53 Temperature 98.9 F Pulse Rate 84 Respiratory Rate 18 20 20 Blood Pressure 190/91 H Pulse Oximetry 96 04/16/18 02:29 04/16/18 04:00 04/16/18 05:11 Temperature 97 F L Pulse Rate 76 80 Respiratory Rate 20 20 20 Blood Pressure 142/89 H 172/86 H Pulse Oximetry 97 04/16/18 05:13 04/16/18 08:00 04/16/18 08:25 Temperature 97.8 F Pulse Rate 82 Respiratory Rate 17 18 Blood Pressure 147/68 H Pulse Oximetry 95 96 Intake & Output 04/15/18 04/16/18 04/16/18 18:59 06:59 18:59 Intake Total 150 / 150 900 / 900 Output Total 550 / 550 Balance 150 / 150 350 / 350 Weight 78.4 kg 54.9 kg Intake: IV 150 / 150 900 / 900 LR 1000 mL Inj 1,000 ML @ 100 900 / 900 mls/hr IV.CONT .Q10H [facility] Rx#: [id number] Levaquin 750 mg Premix Inj 150 150 / 150 ML @ 100 mls/hr IV.SIG ONCE ONE Rx#:[id number] Output: Urine 550 / 550 Other: # Voids 1 Weight On Admission 78.4 kg Narrative: GENERAL: Patient calm resting and chronically hoarse SKIN: Warm and dry. No rashes or ecchymotic injuries EYES: Pupils equal and round. No scleral icterus. No injection or drainage. ENT: External ear exam normal. No acute nasal bleeding or discharge. Mucous membranes pink and moist. CARDIOVASCULAR: Regular rate and rhythm. No murmurs gallops or rubs appreciated RESPIRATORY: Good air flow and effort without accessory muscle use. Clear to auscultation. Breath sounds equal bilaterally. GASTROINTESTINAL: Abdomen soft, non-tender, nondistended. Hepatic and splenic margins not palpable. MUSCULOSKELETAL: Extremities without clubbing, cyanosis, or edema. No obvious deformities. NEUROLOGICAL: Awake and alert. No obvious cranial nerve deficits. Motor grossly within normal limits. Five out of 5 muscle strength in the arms and legs. Normal speech. Results - Labs CBC & Chem 7: 04/16/18 05:42 04/16/18 05:42 Laboratory Results - last 24 hr 04/15/18 04/16/18 04/16/18 19:50 05:42 05:42 CBC w Diff Auto diff final WBC 11.9 H RBC 3.86 L Hgb 12.0 L Hct 34.6 L MCV 89.7 MCH 31.0 MCHC 34.5 RDW 13.0 Plt Count 287 MPV 7.5 Neut % (Auto) 79.4 H Lymph % (Auto) 9.6 [place] % (Auto) 8.5 H Eos % (Auto) 2.0 Baso % (Auto) 0.5 Neut # (Auto) 9.5 H Lymph # (Auto) 1.1 [place] # (Auto) 1.0 H Eos # (Auto) 0.2 Baso # (Auto) 0.1 WBC Differential . Differential Comment . Sodium 140 Potassium 4.0 Chloride 104 Carbon Dioxide 28.9 Anion Gap 7 BUN 9 Creatinine 0.85 Estimated GFR 87 L Random Glucose 114 H Calcium 8.4 L Urine Color Yellow Urine Clarity Clear Urine pH 6.0 Ur Specific [place] Less/equal 1.005 Urine Protein Negative Urine Glucose (UA) Negative Urine Ketones Negative Urine Occult Blood Negative Urine Nitrate Negative Urine Bilirubin Negative Urine Urobilinogen 0.2 Ur Leukocyte Esterase Negative Micro UA Comment Culture not ind Urine Culture Comments Culture not ind - Imaging Impressions Chest X-Ray 04/15/18 13:46 CONCLUSION: Chest CTA 04/15/18 15:26 CONCLUSION: Assessment and Plan - Assessment (1) Sepsis due to pneumonia Code(s): J18.9 - Pneumonia, unspecified organism; A41.9 - Sepsis, unspecified organism Status: Acute Plan: Continue with IV antibiotics Levaquin Patient with leukocytosis and tachycardia Follow-up sputum and has available Continue IV hydration Rule out aspiration (2) History of back injury Code(s): Z87.828 - Personal history of other (healed) physical injury and trauma Status: Acute Plan: Resume home hydrocodone Continue with PT eval (3) Elevated BP without diagnosis of hypertension Code(s): R03.0 - Elevated blood-pressure reading, without diagnosis of hypertension Status: Acute Plan: Continue with Vasotec as needed for hypertension Add Norvasc (4) Malnutrition Code(s): E46 - Unspecified protein-calorie malnutrition Status: Acute - Plan Discharge Plann[place]-2 days with home health pending clinical improvement
[2018-04-16] MEDS: amLODIPine 5 MG Tablet PO SCH (13:29)
[2018-04-16] MEDS ORDERED: Levofloxacin 500 mg Premix Inj 500 MG/100 ML PIGGYBACK IV.SIG SCH (17:00)
[2018-04-16] MEDS: Enoxaparin Inj 40 MG/0.4 ML Syringe SQ SCH (18:14)
[2018-04-16] MEDS: Famotidine 20 MG Tablet PO SCH (22:36)
[2018-04-16] MEDS: Temazepam 15 MG Capsule PO PRN (22:41)
[2018-04-17] MEDS: amLODIPine 5 MG Tablet PO SCH (08:19)
--- NOTE | 2018-04-17 11:37 | P.DCO ---
- Physical Therapy Order: Evaluate and treat - Speech Therapy Order: To improve: Speech and communication skills, Swallowing - Home Health Nursing Order: Medical education, Signs/symptoms of disease process - Haunted History Tour Guide Order: To evaluate: Living conditions/environment - Certification I have seen patient Joseph Mccann on 04/17/18. My clinical findings support the need for the requested home health care services because: Deconditioned with increased weakness I certify that my clinical findings support that this patient is homebound because: Unsteady gait/balance
--- NOTE | 2018-04-17 11:43 | P.DS ---
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 Apparently he fell yesterday today and was unable to ambulate well back pain. He is brought in the hospital by his family. Patient reports no numbness or paresthesias in the extremities but inability to ambulate steadily. Patient thinks he may have had a stroke several weeks ago. He has no inpatient evaluation of this but says he felt weak 5 weeks ago and that weakness has since resolved. Patient notes no confusion, no loss of consciousness. He is quite weak and dehydrated appearing. He appears quite malnourished. In the past the patient has had pneumonia and was treated with antibiotics. He is also had a feeding tube due to some severe dysphasia although it is not clear as to the nature of the dysphasia. Patient reports some weight loss although it is unquantified. Reports he is hungry but does not have any trouble eating. He has been admitted to the emergency room due to this discomfort and apparent weight loss with overt cachexia on exam. Patient in his evaluation did have a chest x-ray right upper lobe pneumonia. Patient has leukocytosis and tachycardia DS: Diagnosis - Discharge Diagnosis (1) Sepsis due to pneumonia Status: Acute (2) History of back injury Status: Acute (3) Elevated BP without diagnosis of hypertension Status: Acute (4) Malnutrition Status: Acute DS: Medications - Discharge Medications Prescriptions: amlodipine [Norvasc] 5 mg PO DAILY #31 tab cyclobenzaprine 10 mg PO Q8HR PRN #20 tab PRN Reason: Muscle Spasm famotidine 20 mg PO HS #31 tab levofloxacin [Levaquin] 500 mg PO DAILY #3 tab DS: Summary Hospital Course: Patient is a 77-year-old gentleman with history of weakness was evaluated for right upper lobe pneumonia and improved with antibiotics and IV hydration. Patient also was found to have some dysphagia. Modified diet was recommended by speech therapy team. - Time Spent with Patient Total time spent providing and/or coordinating discharge services: Less than 30 minutes - Quality: VTE Deep Vein Thrombosis/Pulmonary Embolism Present on Admission: No Exam Vital signs: Vital Signs 04/16/18 12:00 04/16/18 13:27 04/16/18 14:00 Temperature 99.1 F Pulse Rate 112 H Respiratory Rate 17 18 18 Blood Pressure 121/59 L Pulse Oximetry 93 L 04/16/18 16:00 04/16/18 18:27 04/16/18 18:48 Temperature 98.0 F Pulse Rate 80 Respiratory Rate 17 18 18 Blood Pressure 130/73 Pulse Oximetry 96 04/16/18 19:55 04/16/18 20:00 04/17/18 00:00 Temperature 98.1 F 96.9 F L Pulse Rate 95 H 85 Respiratory Rate 12 20 Blood Pressure 126/81 145/93 H Pulse Oximetry 94 L 93 L 96 04/17/18 04:00 04/17/18 08:00 Temperature 97.6 F 99.2 F Pulse Rate 80 83 Respiratory Rate 20 20 Blood Pressure 139/71 152/72 H Pulse Oximetry 95 95 Intake & Output 04/16/18 04/17/18 04/17/18 18:59 06:59 18:59 Intake Total 1260 / 1260 120 / 120 Balance 1260 / 1260 120 / 120 Weight 54.5 kg Intake: IV 300 / 300 LR 1000 mL Inj 1,000 ML @ 100 200 / 200 mls/hr IV.CONT .Q10H [facility] Rx#: [id number] Levaquin 500 mg Premix Inj 500 100 / 100 mg In 100 ml @ 100 mls/hr IV. SIG Q24H [facility] Rx#:[id number] Oral 960 / 960 120 / 120 Other: # Voids 5 1 # Bowel Movements 3 Narrative: GENERAL: Patient calm resting and without complaints SKIN: Warm and dry. No rashes or ecchymotic injuries EYES: Pupils equal and round. No scleral icterus. No injection or drainage. ENT: External ear exam normal. No acute nasal bleeding or discharge. Mucous membranes pink and moist. CARDIOVASCULAR: Regular rate and rhythm. No murmurs gallops or rubs appreciated RESPIRATORY: Good air flow and effort without accessory muscle use. Clear to auscultation. Breath sounds equal bilaterally. GASTROINTESTINAL: Abdomen soft, non-tender, nondistended. Hepatic and splenic margins not palpable. MUSCULOSKELETAL: Extremities without clubbing, cyanosis, or edema. No obvious deformities. NEUROLOGICAL: Awake and alert. No obvious cranial nerve deficits. Motor grossly within normal limits. Five out of 5 muscle strength in the arms and legs. Normal speech. Results Procedures completed during hospitalization: None - Impressions ITS Impressions Head CT 04/15/18 11:25 CONCLUSION: Chest X-Ray 04/15/18 13:46 CONCLUSION: Chest CTA 04/15/18 15:26 CONCLUSION: Discharge Plan - Discharge Disposition Patient Disposition: Disch /[facility] - Discharge Condition Condition: Stable - Discharge Order Discharge Orders: Discharge Order (Routine); Ordered 04/17/18 Ordered By: Norah Salazar - Discharge Details Anticipated Discharge Date: 04/17/18 - Physicians Team Primary Care Provider: Guillermo Frey Attending Provider: Norah Salazar
== END 2018-04-17 13:12 | disposition home health service (06) ==
LOC: PHED 09:43 → PHEDA 17:10 → PH3 20:52
PROVIDERS: ADMIT Hospitalist; ATTEND Hospitalist

== ENCOUNTER 2018-11-09 15:09 | Inpatient (IN) ==
[2018-11-09 17:29] LABS: Baso # (Auto) 0.8 th/mm3 (0.0-0.2); Baso % (Auto) 2.1 % (0.0-2.0); Hematocrit 36.7 % (39.0-51.0); Hemoglobin 11.5 gm/dL (13.0-17.0); Lymph # (Auto) 0.4 th/mm3 (1.0-4.8); Lymph % (Auto) 1.1 % (9.0-44.0); Mean Corpuscular HGB Conc 31.4 % (32.0-36.0); Mean Corpuscular Volume 89.2 fL (80.0-100.0); Mean Platelet Volume 7.5 fL (7.0-11.0); Mono # (Auto) 0.5 th/mm3 (0.0-0.9); Mono % (Auto) 1.3 % (0.0-8.0); Neut # (Auto) 36.5 th/mm3 (1.8-7.7); Neut % (Auto) 95.5 % (16.0-70.0); Platelet Count 516 th/mm3 (150-450); Red Blood Count 4.11 mil/mm3 (4.50-5.90); Red Cell Distribution Width 13.6 % (11.6-17.2); White Blood Count 38.2 th/mm3 (4.0-11.0)
--- NOTE | 2018-11-09 17:36 | ED ---
HPI General Chief Complaint: Fall Stated Complaint: Fall/Hit Head Time Seen by Provider: 11/09/18 16:25 Source: patient and family Mode of arrival: ambulatory Limitations: no limitations History of Present Illness HPI Narrative: 78-year-old male with a history of chronic low back pain presents to the emergency department for evaluation after being found this morning by family on the bathroom floor. Patient states that he was walking to the bathroom at an unknown time but believes to be this morning when he slipped and fell and hit his head. He states that he does feel weak as well. Denies loss of consciousness but he does not know how long he was on the floor. He has no complaints today except low back pain but states this is chronic and is due for his next hydrocodone. Family assist with a history and states that he fell about a month ago and has felt weak since then. They also state that patient was placed on oxygen at home at 2 L/min for low oxygen levels. He has no known diagnosis of COPD, asthma. They did not know why he was placed on oxygen. He denies any other chronic medical problems. Primary care physician is Dr. Frey and follows with him about once a month. MD complaint: Reports fall Onset (ago): hour(s) Fall from: standing Fall witnessed: no Place fall occurred: home Loss of consciousness: none Prolonged down time: unclear Symptoms prior to fall: Reports none Context: Reports tripped/slipped Location of injury: Reports head and face Severity: mild Quality: Reports aching Associated symptoms (after fall): Reports denies Related Data Home Medications Medication Instructions Recorded Confirmed hydrocodone-acetaminophen 1 tab PO Q4-6H PRN 04/15/18 11/09/18 atorvastatin 20 mg PO DAILY 11/09/18 11/09/18 mirtazapine 30 mg PO DAILY 11/09/18 11/09/18 sucralfate 1 g PO Q6H 11/09/18 11/09/18 tamsulosin [Flomax] 0.4 mg PO DAILY 11/09/18 11/09/18 temazepam 30 mg PO HS PRN 11/09/18 11/09/18 Allergies Allergy/AdvReac Type Severity Reaction Status Date / Time clindamycin Allergy Severe RASH Verified 11/09/18 16:21 SWELLING erythromycin base Allergy Severe RASH Verified 11/09/18 16:21 SWELLING penicillin G Allergy Severe RASH Verified 11/09/18 16:21 SWELLING Review of Systems ROS: all other systems reviewed are negative [facility] Medical History Medical History History of back injury (Acute) BPH (benign prostatic hyperplasia) (Acute) Chronic back pain (Acute) Falls (Acute) Arthritis (Acute) GERD (gastroesophageal reflux disease) (Acute) Surgical History Surgical History Hx of bilateral cataract extraction (Acute) Hx of cholecystectomy (Acute) Social History Social History Substance History: No History of Abuse Second Hand Smoke Exposure: No Smoking Status: Former smoker Tobacco Type: Cigarettes How Often Do You Have a Drink Containing Alcohol: Never Recent Travel in [facility] within the Last 8 Weeks: No Recent Out of Country Travel within the Last 8 Weeks: No Immunization History Tetanus Immunization: Unsure Exam Narrative Exam Narrative: GENERAL: WD, cachectic appearing in NAD, frequent, wet-sounding cough. SKIN: Focused skin assessment warm/dry. Multiple areas of ecchymosis over upper and lower extremities. HEAD: Normocephalic. Laceration above the right eyebrow measuring approximately 1-2 cm EYES: Pupils equal and round. No scleral icterus. No injection or drainage. ENT: No nasal bleeding or discharge. Mucous membranes pink and moist. No tonsillar hypertrophy or exudate. NECK: Trachea midline. No JVD. No meningismus. No midline tenderness. CARDIOVASCULAR: Regular rate and rhythm. No murmur appreciated. RESPIRATORY: No accessory muscle use. Diffuse rhonchi present GASTROINTESTINAL: Abdomen soft, non-tender, nondistended. No CVAT. MUSCULOSKELETAL: No obvious deformities. No clubbing. No cyanosis. No edema. No tenderness to palpation of the calves. Sensation intact to bilateral lower extremities. NEUROLOGICAL: Awake and alert. No obvious cranial nerve deficits. Motor grossly within normal limits. Normal speech. PSYCHIATRIC: Appropriate mood and affect; insight and judgment normal. Course Initial Documented Vital Signs Temperature 98.3 F 11/09/18 15:37 Pulse Rate 95 H 11/09/18 15:37 Blood Pressure 103/65 11/09/18 15:37 Pulse Oximetry 88 L 11/09/18 15:37 Last Documented Vital Signs Temperature 97.4 F L 11/09/18 20:00 Pulse Rate 85 11/09/18 20:00 Respiratory Rate 16 11/09/18 20:00 Blood Pressure 154/67 H 11/09/18 20:00 Pulse Oximetry 97 11/09/18 20:00 Medical Decision Making MDM Narrative Medical decision making narrative: 78-year-old male presents to the emergency department for evaluation after fall that occurred last night. Family assists with the history. They state that he is a DNR and they are his healthcare surrogate. They are amenable to cardiac medications but no intubations or chest compressions. During the course of the patient's emergency department visit, the patient's history, examination, and differential diagnosis were reviewed with the patient. The patient was placed on a cardiac nurse practitioner with oximetry and frequent blood pressure monitoring. The patient had an IV access obtained and blood work sent for analysis. Vital signs demonstrate blood pressure 104/60, heart rate 84, temperature 98.3, SaO2 93% on 2 L/min. Note the family states that he was placed on oxygen 2 weeks ago with an unknown diagnosis. Patient takes hydrocodone 103 25 4 times a day for chronic low back pain and is due for his dose. Ordered this medication for his chronic low back pain. Physical exam findings demonstrate a well-developed, cachectic appearing 78-year -old male in significant position. He has a frequent, wet sounding cough. He has a laceration to his right brow which was repaired today. No obvious crepitus or deformities of the face noted. His lungs with diffuse rhonchi. Nebulizers and patient states his breathing is much improved. His labs are notable for WBCs 38.2, H/H 11.5/36.7, platelets 516, neutrophil percent 95.5%, neutrophil bands 36.7. INR 1.1. BUN/creatinine 33/1.10, lactic 2.6, BNP 222, troponin less than 0.02. EKG shows sinus rhythm rate [address] elevation or depression. Based off the labs, initiated vancomycin, Flagyl, and aztreonam. Note that patient has an allergy to penicillin. CTs ordered for evaluation as patient does have an abrasion to the nose as well. It appears that patient does have nasal bone fractures. Otherwise no acute process of the head or neck. Chest x-ray demonstrates bilateral pulmonary infiltrates greater throughout the left lung. Small left pleural effusion. Will admit this patient for sepsis secondary to pneumonia. I spoke with FRANTZ Marin, who works with who agreed to the admission. Medical Screen Exam Complete: Yes Emergency Medical Condition: Yes Differential Diagnosis Differential Diagnosis: Generalized weakness, pneumonia, sepsis, brow laceration Lab Data Result diagrams: 11/09/18 17:10 11/09/18 17:10 Lab Results 11/09/18 11/09/18 11/09/18 Range/Units 17:10 17:10 17:10 CBC w Diff WBC (4.0-11.0) th/mm3 RBC (4.50-5.90) mil/mm3 Hgb (13.0-17.0) gm/dL Hct (39.0-51.0) % MCV (80.0-100.0) fL MCH (27.0-34.0) pg MCHC (32.0-36.0) % RDW (11.6-17.2) % Plt Count (150-450) th/mm3 MPV (7.0-11.0) fL Neut % (Auto) (16.0-70.0) % Lymph % (Auto) (9.0-44.0) % [place] % (Auto) (0.0-8.0) % Eos % (Auto) (0.0-4.0) % Baso % (Auto) (0.0-2.0) % Neut # (Auto) (1.8-7.7) th/mm3 Lymph # (Auto) (1.0-4.8) th/mm3 [place] # (Auto) (0.0-0.9) th/mm3 Eos # (Auto) (0.0-0.4) th/mm3 Baso # (Auto) (0.0-0.2) th/mm3 WBC Differential Seg Neuts % (Manual) (16-70) % Band Neuts % (Manual) (0-6) % Lymphocytes % (Manual) (9-44) % Monocytes % (Manual) (0-8) % Abs Neuts (Manual) (1.8-7.7) th/mm3 Differential Comment Platelet Estimate (Normal) Platelet Morphology (Normal) PT 10.7 (9.8-11.6) sec INR 1.1 Ratio Sodium 138 (136-145) meq/L Potassium 4.8 (3.5-5.1) meq/L Chloride 101 (98-107) meq/L Carbon Dioxide 29.2 (21.0-32.0) meq/L Anion Gap 8 (5-15) meq/L BUN 33 H (7-18) mg/dL Creatinine 1.10 (0.60-1.30) mg/dL Estimated GFR 65 L (>89) mL/min Random Glucose 145 H (74-106) mg/dL Lactic Acid (0.4-2.0) mmol/L Calcium 8.8 (8.5-10.1) mg/dL Calcium Adj for Albumin Magnesium 2.1 (1.5-2.5) mg/dL Total Bilirubin 0.3 (0.2-1.0) mg/dL AST 19 (15-37) U/L ALT 17 (12-78) U/L Alkaline Phosphatase 94 (45-117) U/L Total Creatine Kinase 121 (39-308) U/L Troponin I Less than 0.02 L (0.02-0.05) ng/mL B-Natriuretic Peptide 222 H (0-100) pg/mL Total Protein 7.6 (6.4-8.2) g/dL Albumin 3.2 L (3.4-5.0) g/dL TSH 0.249 L (0.358-3.740) uIU/mL Urine Color (Yellw/Straw) Urine Clarity (Clear) Urine pH (5.0-8.5) Ur Specific [place] (1.002-1.035) Urine Protein (Neg-Trace) mg/dL Urine Glucose (UA) (Negative) mg/dL Urine Ketones (Negative) mg/dL Urine Occult Blood (Negative) Urine Nitrate (Negative) Urine Bilirubin (Negative) Urine Urobilinogen (Less than 2) mg/dL Ur Leukocyte Esterase (Negative) Urine RBC (0-3) /hpf Urine WBC (0-5) /hpf Ur Squamous Epith Cells (0-5) /hpf Micro UA Comment Ur Microscopic Review Urine Culture Comments 11/09/18 11/09/18 11/09/18 Range/Units 17:10 17:10 17:10 CBC w Diff Slide review pending WBC 38.2 H (4.0-11.0) th/mm3 RBC 4.11 L (4.50-5.90) mil/mm3 Hgb 11.5 L (13.0-17.0) gm/dL Hct 36.7 L (39.0-51.0) % MCV 89.2 (80.0-100.0) fL MCH 28.0 (27.0-34.0) pg MCHC 31.4 L (32.0-36.0) % RDW 13.6 (11.6-17.2) % Plt Count 516 H (150-450) th/mm3 MPV 7.5 (7.0-11.0) fL Neut % (Auto) 95.5 H (16.0-70.0) % Lymph % (Auto) 1.1 L (9.0-44.0) % [place] % (Auto) 1.3 (0.0-8.0) % Eos % (Auto) 0.0 (0.0-4.0) % Baso % (Auto) 2.1 H (0.0-2.0) % Neut # (Auto) 36.5 H (1.8-7.7) th/mm3 Lymph # (Auto) 0.4 L (1.0-4.8) th/mm3 [place] # (Auto) 0.5 (0.0-0.9) th/mm3 Eos # (Auto) 0.0 (0.0-0.4) th/mm3 Baso # (Auto) 0.8 H (0.0-0.2) th/mm3 WBC Differential Manual diff final Seg Neuts % (Manual) 72 H (16-70) % Band Neuts % (Manual) 24 H (0-6) % Lymphocytes % (Manual) 2 L (9-44) % Monocytes % (Manual) 2 (0-8) % Abs Neuts (Manual) 36.7 H (1.8-7.7) th/mm3 Differential Comment . Platelet Estimate High H (Normal) Platelet Morphology Normal (Normal) PT (9.8-11.6) sec INR Ratio Sodium Cancelled (136-145) meq/L Potassium Cancelled (3.5-5.1) meq/L Chloride Cancelled (98-107) meq/L Carbon Dioxide Cancelled (21.0-32.0) meq/L Anion Gap Cancelled (5-15) meq/L BUN Cancelled (7-18) mg/dL Creatinine Cancelled (0.60-1.30) mg/dL Estimated GFR Cancelled (>89) mL/min Random Glucose Cancelled (74-106) mg/dL Lactic Acid 2.6 H (0.4-2.0) mmol/L Calcium Cancelled (8.5-10.1) mg/dL Calcium Adj for Albumin Cancelled Magnesium (1.5-2.5) mg/dL Total Bilirubin Cancelled (0.2-1.0) mg/dL AST Cancelled (15-37) U/L ALT Cancelled (12-78) U/L Alkaline Phosphatase Cancelled (45-117) U/L Total Creatine Kinase (39-308) U/L Troponin I Cancelled (0.02-0.05) ng/mL B-Natriuretic Peptide (0-100) pg/mL Total Protein Cancelled (6.4-8.2) g/dL Albumin Cancelled (3.4-5.0) g/dL TSH (0.358-3.740) uIU/mL Urine Color (Yellw/Straw) Urine Clarity (Clear) Urine pH (5.0-8.5) Ur Specific [place] (1.002-1.035) Urine Protein (Neg-Trace) mg/dL Urine Glucose (UA) (Negative) mg/dL Urine Ketones (Negative) mg/dL Urine Occult Blood (Negative) Urine Nitrate (Negative) Urine Bilirubin (Negative) Urine Urobilinogen (Less than 2) mg/dL Ur Leukocyte Esterase (Negative) Urine RBC (0-3) /hpf Urine WBC (0-5) /hpf Ur Squamous Epith Cells (0-5) /hpf Micro UA Comment Ur Microscopic Review Urine Culture Comments 11/09/18 11/09/18 Range/Units 17:50 20:05 CBC w Diff WBC (4.0-11.0) th/mm3 RBC (4.50-5.90) mil/mm3 Hgb (13.0-17.0) gm/dL Hct (39.0-51.0) % MCV (80.0-100.0) fL MCH (27.0-34.0) pg MCHC (32.0-36.0) % RDW (11.6-17.2) % Plt Count (150-450) th/mm3 MPV (7.0-11.0) fL Neut % (Auto) (16.0-70.0) % Lymph % (Auto) (9.0-44.0) % [place] % (Auto) (0.0-8.0) % Eos % (Auto) (0.0-4.0) % Baso % (Auto) (0.0-2.0) % Neut # (Auto) (1.8-7.7) th/mm3 Lymph # (Auto) (1.0-4.8) th/mm3 [place] # (Auto) (0.0-0.9) th/mm3 Eos # (Auto) (0.0-0.4) th/mm3 Baso # (Auto) (0.0-0.2) th/mm3 WBC Differential Seg Neuts % (Manual) (16-70) % Band Neuts % (Manual) (0-6) % Lymphocytes % (Manual) (9-44) % Monocytes % (Manual) (0-8) % Abs Neuts (Manual) (1.8-7.7) th/mm3 Differential Comment Platelet Estimate (Normal) Platelet Morphology (Normal) PT (9.8-11.6) sec INR Ratio Sodium (136-145) meq/L Potassium (3.5-5.1) meq/L Chloride (98-107) meq/L Carbon Dioxide (21.0-32.0) meq/L Anion Gap (5-15) meq/L BUN (7-18) mg/dL Creatinine (0.60-1.30) mg/dL Estimated GFR (>89) mL/min Random Glucose (74-106) mg/dL Lactic Acid 2.8 H (0.4-2.0) mmol/L Calcium (8.5-10.1) mg/dL Calcium Adj for Albumin Magnesium (1.5-2.5) mg/dL Total Bilirubin (0.2-1.0) mg/dL AST (15-37) U/L ALT (12-78) U/L Alkaline Phosphatase (45-117) U/L Total Creatine Kinase (39-308) U/L Troponin I (0.02-0.05) ng/mL B-Natriuretic Peptide (0-100) pg/mL Total Protein (6.4-8.2) g/dL Albumin (3.4-5.0) g/dL TSH (0.358-3.740) uIU/mL Urine Color Yellow (Yellw/Straw) Urine Clarity Slightly cloudy (Clear) Urine pH 5.0 (5.0-8.5) Ur Specific [place] 1.025 (1.002-1.035) Urine Protein Trace (Neg-Trace) mg/dL Urine Glucose (UA) Negative (Negative) mg/dL Urine Ketones Trace H (Negative) mg/dL Urine Occult Blood Negative (Negative) Urine Nitrate Negative (Negative) Urine Bilirubin Negative (Negative) Urine Urobilinogen 0.2 (Less than 2) mg/dL Ur Leukocyte Esterase Negative (Negative) Urine RBC 0-3 (0-3) /hpf Urine WBC 0-5 (0-5) /hpf Ur Squamous Epith Cells 0-5 (0-5) /hpf Micro UA Comment Culture not ind Ur Microscopic Review Microscopic reviewed Urine Culture Comments Culture not ind Imaging Data Radiologist's impression: Cervical Spine CT 11/09/18 17:00 CONCLUSION: 1. Advanced multilevel degenerative changes. 2. Posterior disc osteophyte complexes without canal stenosis. 3. No acute fracture. Chest X-Ray 11/09/18 17:00 CONCLUSION: Bilateral pulmonary infiltrates greater throughout the left lung. Small left pleural effusion Head CT 11/09/18 17:00 CONCLUSION: 1. Cerebral atrophy. 2. No intraparenchymal hemorrhage. 3. Bilateral sinus disease . . Face CT 11/09/18 17:02 CONCLUSION: 1. Nasal bone fractures. 2. Right frontal scalp swelling and suspected laceration. 3. Sinus disease. Discharge Plan Discharge Disposition Patient Disposition: ED Admit(ED Internal Use Only) Discharge Condition Condition: Fair Discharge Order Discharge Orders: ED Use Only Admit Order (Routine); Ordered 11/09/18 Ordered By: Delicia Tripathi Discharge Details Diagnosis: Eyebrow laceration, Sepsis due to pneumonia, Fracture of nasal bone, MARISSA ( acute kidney injury) Physicians Team ED Provider: Cassius Carr ED Midlevel Provider: Delicia Tripathi Primary Care Provider: Guillermo Frey Attending Provider: Nicole Sneed Status ED Status: Left Department Discharge Information Discharge Date/Time: 11/09/18 21:25
[2018-11-09 17:39] LABS: Chloride 101 meq/L (98-107); Potassium 4.8 meq/L (3.5-5.1); Sodium 138 meq/L (136-145)
[2018-11-09 17:40] LABS: INR 1.1 Ratio; Prothrombin Time 10.7 sec (9.8-11.6)
[2018-11-09 17:42] LABS: Anion Gap 8 meq/L (5-15); Blood Urea Nitrogen 33 mg/dL (7-18); Calcium 8.8 mg/dL (8.5-10.1); Carbon Dioxide 29.2 meq/L (21.0-32.0); Glucose,Random 145 mg/dL (74-106); Magnesium 2.1 mg/dL (1.5-2.5)
[2018-11-09 17:43] LABS: Albumin 3.2 g/dL (3.4-5.0)
[2018-11-09 17:45] LABS: Aspartate Aminotransferase 19 U/L (15-37); Glomerular Filtration Rate 65 mL/min (>89)
[2018-11-09 17:46] LABS: Alanine Aminotransferase 17 U/L (12-78)
[2018-11-09 17:47] LABS: Total Protein 7.6 g/dL (6.4-8.2)
[2018-11-09 17:48] LABS: Alkaline Phosphatase 94 U/L (45-117); Creatine Kinase 121 U/L (39-308)
[2018-11-09 17:56] LABS: Thyroid Stimulating Hormone 0.249 uIU/mL (0.358-3.740)
[2018-11-09] MEDS ORDERED: Vancomycin Inj 1,500 MG in Sodium Chlor 0.9% Inj 500 ML IV.SIG ONE (17:56)
[2018-11-09] MEDS ORDERED: Aztreonam Inj 2 GM in Sodium Chloride 0.9% Inj 100 ML IV.SIG STA (17:56)
[2018-11-09] MEDS ORDERED: Sod Chloride 0.9% Inj 1,000 ML IV.SIG SCH (18:00)
[2018-11-09 18:05] LABS: Bilirubin,Urine Negative (Negative); Clarity,Urine Slightly Cloudy (Clear); Color,Urine Yellow (Yellw/Straw); Glucose,Urine (UA) Negative (Negative); Leukocyte Esterase,Urine Negative (Negative); Nitrite,Urine Negative (Negative); Specific Gravity,Urine 1.025 (1.002-1.035); Urobilinogen,Urine 0.2 mg/dL (Less than 2)
[2018-11-09 18:07] LABS: Lymphocytes 2 % (9-44); Monocytes 2 % (0-8)
[2018-11-09 18:08] LABS: Platelet Morphology Normal (Normal)
[2018-11-09 18:12] LABS: RBC,Urine 0-3 /hpf (0-3); Squamous Epithelial Cell,Urine 0-5 /hpf (0-5); WBC,Urine 0-5 /hpf (0-5)
--- NOTE | 2018-11-09 18:44 | CT ---
EXAM DATE: 11/09/2018 6:41 PM EST AGE/SEX: 78 years / Male INDICATIONS: Fell and hit head. Found on floor. Right frontal laceration. CLINICAL DATA: This is the patient's initial encounter. Patient reports that signs and symptoms have been present for 2 days and indicates a pain score of 8/10. MEDICAL/SURGICAL HISTORY: Gastroesophageal reflux disease. BPH Cholecystectomy. Back surgery. RADIATION DOSE: 63.21 CTDI (mGy) COMPARISON: [facility], CT HEAD W/O CONTRAST, 04/15/2018. . TECHNIQUE: CT of the head without contrast. Using automated exposure control and adjustment of the mA and/or kV according to patient size, radiation dose was kept as low as reasonably achievable to ob tain optimal diagnostic quality images. DICOM format image data is available electronically for revi ew and comparison. FINDINGS: Cerebrum: The ventricles are prominent, unchanged. No evidence of midline shift, mass lesion, hemor rhage or acute infarction. No extraaxial fluid collections are seen. Posterior Fossa: The cerebellum and brainstem are intact. The 4th ventricle is midline. The cerebe llopontine angle is unremarkable. Extracranial: The visualized portion of the orbits is intact. Opacification of both maxillary sinuse s. Skull: The calvaria is intact. No evidence of skull fracture. CONCLUSION: 1. Cerebral atrophy. 2. No intraparenchymal hemorrhage. 3. Bilateral sinus disease . . Electronically signed by: Farhat Rios MD Board Certified Radiologist 11/09/2018 6:43 PM EST
--- NOTE | 2018-11-09 18:54 | CT ---
EXAM DATE: 11/09/2018 6:49 PM EST AGE/SEX: 78 years / Male INDICATIONS: Fell and hit head. Found on floor. Right frontal laceration. CLINICAL DATA: This is the patient's initial encounter. Patient reports that signs and symptoms have been present for 2 days and indicates a pain score of 8/10. MEDICAL/SURGICAL HISTORY: Gastroesophageal reflux disease. Cholecystectomy. Back surgery. RADIATION DOSE: 27.85 CTDI (mGy) COMPARISON: [facility], CTA PULMONARY W CONTRAST W 3D, 04/15/2018. . TECHNIQUE: Contiguous axial images were obtained using helical multirow detector technique. The vol umetric data was post-processed with multiplanar reconstruction in oblique axial, sagittal, and coron al planes. Using automated exposure control and adjustment of the mA and/or kV according to patient s ize, radiation dose was kept as low as reasonably achievable to obtain optimal diagnostic quality elaine ges. DICOM format image data is available electronically for review and comparison. FINDINGS: Vertebrae: Normal vertebral body height. Prominent degenerative changes. Diffuse degenerative change s of facets. Alignment: Normal. No subluxation. C2-3: The bony spinal canal is normal in size. No evidence of disc bulge or herniation. The neural foramina are bilaterally patent. C3-4: The bony spinal canal is normal in size. No evidence of disc bulge or herniation. Mild to mod erate bilateral neural foraminal narrowing. C4-5: Posterior disc osteophyte complex without canal stenosis. Severe bilateral neural foraminal na rrowing C5-6: Posterior disc osteophyte complex without canal stenosis. Severe bilateral neural foraminal na rrowing C6-7: Posterior disc osteophyte complex without canal stenosis. Severe bilateral neural foraminal na rrowing C7-T1: The bony spinal canal is normal in size. No evidence of disc bulge or herniation. The neura l foramina are bilaterally patent. CONCLUSION: 1. Advanced multilevel degenerative changes. 2. Posterior disc osteophyte complexes without canal stenosis. 3. No acute fracture. Electronically signed by: Farhat Rios MD Board Certified Radiologist 11/09/2018 6:52 PM EST
--- NOTE | 2018-11-09 19:36 | XR ---
EXAM DATE: 11/09/2018 7:30 PM EST AGE/SEX: 78 years / Male INDICATIONS: Cough. CLINICAL DATA: This is the patient's initial encounter. Patient reports that signs and symptoms have been present for 1 day and indicates a pain score of 0/10. MEDICAL/SURGICAL HISTORY: . Gastroesophageal reflux disease. Cholecystectomy. Back surgery. . COMPARISON: [facility], CHEST 2V AP&LAT, 04/15/2018. . FINDINGS: A single AP view of the chest demonstrates bilateral pulmonary infiltrates but greater throughout the left lung. Small left pleural effusion. The cardiomediastinal contours are unremarkable. Osseous s tructures are intact. CONCLUSION: Bilateral pulmonary infiltrates greater throughout the left lung. Small left pleural effusion Electronically signed by: Farhat Rios MD Board Certified Radiologist 11/09/2018 7:35 PM EST
--- NOTE | 2018-11-09 19:37 | CT ---
EXAM DATE: 11/09/2018 6:55 PM EST AGE/SEX: 78 years / Male INDICATIONS: Fell and hit head. Found on floor. Right frontal laceration. CLINICAL DATA: This is the patient's initial encounter. Patient reports that signs and symptoms have been present for 2 days and indicates a pain score of 8/10. MEDICAL/SURGICAL HISTORY: Gastroesophageal reflux disease. Cholecystectomy. Back surgery. RADIATION DOSE: 27.34 CTDI (mGy) COMPARISON: No prior exams available for comparison. TECHNIQUE: Contiguous images in the axial and coronal planes were obtained using helical multirow de tector technique. Using automated exposure control and adjustment of the mA and/or kV according to p atient size, radiation dose was kept as low as reasonably achievable to obtain optimal diagnostic kofi lity images. DICOM format image data is available electronically for review and comparison. FINDINGS: Orbits: The orbital and infraorbital osseous structures are intact. The retroconal structures have a normal configuration. No radiopaque foreign bodies are seen. Nasal Bone: There is a fracture at the superior aspect of the nasal bones involving both the right a nd left sides. This extends more inferiorly on the right. There is minimal, 1 mm, medial displacement of the distal nasal bone fracture on the right. Zygomatic Arches: Symmetric without evidence of fracture. Sinuses: There is mucosal disease seen throughout the ethmoid, maxillary and sphenoid sinuses. There is an air-fluid level seen on the left maxillary sinus. There appears to be postsurgical change at t he medial aspects of the maxillary sinuses bilaterally. There is bony thickening around the right max illary sinus typically seen with chronic sinus disease. Nasal Cavity: The nasal septum is intact and midline. The middle turbinates have been removed. The l acrimal ducts are intact. Soft Tissues: There is soft tissue swelling at the inferior right lateral scalp. There appears to be a potential laceration in this region with irregularity seen at the skin surface. Intracranial: No intracranial air seen. Cribriform Plate: Grossly intact. CONCLUSION: 1. Nasal bone fractures. 2. Right frontal scalp swelling and suspected laceration. 3. Sinus disease. Electronically signed by: Joseph Loaiza MD Board Certified Radiologist 11/09/2018 7:36 PM EST
[2018-11-09] MEDS ORDERED: Acetaminophen 325 MG Tablet PO PRN (21:19)
[2018-11-09] MEDS ORDERED: Bisacodyl 10 MG Supp RECTAL PRN (21:19)
[2018-11-09] MEDS ORDERED: Temazepam 15 MG Capsule PO PRN (21:27)
--- NOTE | 2018-11-09 21:32 | P.EN ---
[facility] queried - verified Hydrocodone 10/325 mg 30 day supply #180 - Restoril dose 15 mg 30 day supply #120 last filled end of september 2018 Testing Rehab Instance Type Right Forehead: Wound Type: Laceration
[2018-11-09] MEDS: Sod Chloride 0.9% Inj 1,000 ML IV.CONT SCH (21:56)
[2018-11-09] MEDS: Heparin - SQ 10,000 UNITS/ML Vial SQ SCH (22:08)
[2018-11-09] MEDS: Temazepam 15 MG Capsule PO PRN (22:10)
[2018-11-09] MEDS: Mirtazapine 15 MG Tablet PO SCH (22:11)
[2018-11-10] MEDS: Aztreonam Inj 2 GM in Sodium Chloride 0.9% Inj 100 ML IV.SIG SCH ×3 (02:26→17:14)
[2018-11-10 05:20] LABS: Baso % (Auto) 0.1 % (0.0-2.0); Hematocrit 29.1 % (39.0-51.0); Hemoglobin 9.7 gm/dL (13.0-17.0); Lymph # (Auto) 0.7 th/mm3 (1.0-4.8); Lymph % (Auto) 2.1 % (9.0-44.0); Mean Corpuscular HGB Conc 33.4 % (32.0-36.0); Mean Corpuscular Hemoglobin 29.5 pg (27.0-34.0); Mean Corpuscular Volume 88.4 fL (80.0-100.0); Mean Platelet Volume 7.2 fL (7.0-11.0); Mono # (Auto) 0.9 th/mm3 (0.0-0.9); Mono % (Auto) 2.7 % (0.0-8.0); Neut # (Auto) 31.8 th/mm3 (1.8-7.7); Neut % (Auto) 95.1 % (16.0-70.0); Platelet Count 413 th/mm3 (150-450); Red Cell Distribution Width 13.9 % (11.6-17.2); White Blood Count 33.4 th/mm3 (4.0-11.0)
[2018-11-10 05:24] LABS: Potassium 4.4 meq/L (3.5-5.1)
[2018-11-10 05:28] LABS: Calcium 8.2 mg/dL (8.5-10.1); Carbon Dioxide 28.1 meq/L (21.0-32.0)
[2018-11-10 05:50] LABS: Monocytes 3 % (0-8); Platelet Estimate Normal (Normal); Platelet Morphology Normal (Normal); RBC Morphology Normal (Normal)
[2018-11-10] MEDS: Heparin - SQ 10,000 UNITS/ML Vial SQ SCH ×3 (06:36→21:18)
[2018-11-10] MEDS: Senna/Docusate Sodium 8.6/50 MG Tablet PO SCH ×2 (08:43→20:50)
[2018-11-10] MEDS: Sucralfate 1 GM Tablet PO SCH ×4 (08:43→20:50)
--- NOTE | 2018-11-10 10:23 | P.HPIM ---
History of Present Illness Service: Hospitalist Primary Care Physician: Guillermo Frey MD Chief Complaint: Fall History of Present Illness: Mr. Mccann is a pleasant 78 year old male with a history of O2 dependent respiratory failure who was brought to the hospital after he was found on the bathroom floor by family members. Daughter at bedside gives a lot of the history. She saw him last at around 10:30PM on . Patient reports that at some point he went to the bathroom but does not recall much else. He was found on the bathroom floor at around 9AM on 2018. Head CT, cervical spine CT did not reveal any acute findings. Face CT shows nasal bone fractures. CXR shows bilateral infiltrates. His CBC shows WBC 33.4K. Although he has chronic cough, he does not mention any worsening of cough , fever or shortness of breath. Patient was started on abx in the ED. Past medical history: Chronic back pain, GERD, arthritis Past surgical history: Esophageal surgery Social history: No tobacco, alcohol or illicit drugs Family history: He was adopted. Inpatient Certification Inpatient Certification: I certify that the inpatient services were ordered in accordance with Medicare regulations governing the order. This includes certification that hospital inpatient services are reasonable and necessary and in the case of services not specified as inpatient-only under 42 CFR 419.22(n), that they are appropriately provided as inpatient services in accordance to with the 2-midnight benchmark under 43 CFR 412.3(e) Estimated Total Length of Stay (Days): 3 Plans for Post Hospital Care: Not yet determined Review of Systems Review of Systems: all other systems reviewed are negative [facility] Medical History Medical History History of back injury (Acute) BPH (benign prostatic hyperplasia) (Acute) Chronic back pain (Acute) Falls (Acute) Arthritis (Acute) GERD (gastroesophageal reflux disease) (Acute) Social History Social History Substance History: No History of Abuse Second Hand Smoke Exposure: No Smoking Status: Former smoker Tobacco Type: Cigarettes How Often Do You Have a Drink Containing Alcohol: Never Recent Travel in [facility] within the Last 8 Weeks: No Recent Out of Country Travel within the Last 8 Weeks: No Immunization History Tetanus Immunization: Unsure Hx Influenza Vaccine This Season: No Medications and Allergies Allergies Allergy/AdvReac Type Severity Reaction Status Date / Time clindamycin Allergy Severe RASH Verified 11/09/18 16:21 SWELLING erythromycin base Allergy Severe RASH Verified 11/09/18 16:21 SWELLING penicillin G Allergy Severe RASH Verified 11/09/18 16:21 SWELLING Home Medications Medication Instructions Recorded Confirmed Type hydrocodone-acetaminophen 1 tab PO Q4-6H PRN 04/15/18 11/09/18 History atorvastatin 20 mg PO DAILY 11/09/18 11/09/18 History mirtazapine 30 mg PO DAILY 11/09/18 11/09/18 History sucralfate 1 g PO Q6H 11/09/18 11/09/18 History tamsulosin [Flomax] 0.4 mg PO DAILY 11/09/18 11/09/18 History temazepam 30 mg PO HS PRN 11/09/18 11/09/18 History Active Medications: Active Medications Acetaminophen (Tylenol) 650 mg PO Q4H PRN PRN Reason: Temp > 100.4 Hydrocodone Bitart/Acetaminophen ([place] 5/325) 1 tab PO Q4H PRN PRN Reason: PAIN 1-10 Last Admin: 11/10/18 06:35 Dose: 1 tab Al Hydroxide/Mg Hydroxide (Milk Of Gary Fam) 30 ml PO Q12H PRN PRN Reason: Mild Constipation Atorvastatin Calcium (Lipitor) 20 mg PO DAILY [facility] Last Admin: 11/10/18 08:43 Dose: 20 mg Bisacodyl (Dulcolax Supp) 10 mg RECTAL DAILY PRN PRN Reason: SEVERE CONSITIPATION Heparin Sodium (Porcine) (Heparin Inj) 5,000 units SQ Q8H [facility] Last Admin: 11/10/18 06:36 Dose: 5,000 units Aztreonam 2 gm/ Sodium (Chloride) 100 mls @ 100 mls/hr IV.SIG Q8H [facility] Last Admin: 11/10/18 09:00 Dose: 100 mls/hr Doxycycline Hyclate 100 mg/ (Sodium Chloride) 100 mls @ 100 mls/hr IV.SIG Q12H [facility] Last Admin: 11/10/18 09:39 Dose: 100 mls/hr Sodium Chloride (Ns Inj) 1,000 mls @ 70 mls/hr IV.CONT .[id number] [facility] Last Admin: 11/09/18 21:56 Dose: 70 mls/hr Lactulose (Lactulose Liq) 30 ml PO DAILY PRN PRN Reason: SEVERE CONSITIPATION Mirtazapine (Remeron) 30 mg PO HS [facility] Last Admin: 11/09/18 22:11 Dose: 30 mg Ondansetron HCl (Zofran Inj) 4 mg IV.PUSH Q6H PRN PRN Reason: NAUSEA OR VOMITING Senna/Docusate Sodium (Emliy-Colace) 1 tab PO BID [facility] Last Admin: 11/10/18 08:43 Dose: 1 tab Sennosides (Senokot) 17.2 mg PO Q12H PRN PRN Reason: Moderate Constipation Sodium Chloride (Ns Flush) 2 ml IV.FLUSH PRN PRN PRN Reason: FLUSH AFTER USING IV ACCESS Last Admin: 11/09/18 22:02 Dose: 2 ml Sodium Chloride (Ns Flush) 2 ml IV.FLUSH PRN PRN PRN Reason: FLUSH AFTER USING IV ACCESS Sodium Chloride (Ns Flush) 2 ml IV.FLUSH BID [facility] Last Admin: 11/10/18 08:46 Dose: Not Given Sodium Chloride (Ns Flush) 2 ml IV.FLUSH PRN PRN PRN Reason: FLUSH AFTER USING IV ACCESS Sucralfate (Carafate) 1 gm PO ACHS [facility] Last Admin: 11/10/18 08:43 Dose: 1 gm Tamsulosin HCl (Flomax) 0.4 mg PO DAILY [facility] Last Admin: 11/10/18 08:43 Dose: 0.4 mg Temazepam (Restoril) 30 mg PO HS PRN PRN Reason: SLEEP Last Admin: 11/09/18 22:10 Dose: 30 mg Physical Exam Vital signs: Vital Signs 11/09/18 15:37 11/09/18 16:33 11/09/18 17:33 Temperature 98.3 F Pulse Rate 95 H 85 85 Respiratory Rate 24 24 Blood Pressure 103/65 Pulse Oximetry 88 L 94 L 11/09/18 17:58 11/09/18 18:00 11/09/18 19:09 Temperature Pulse Rate 78 88 84 Respiratory Rate 20 20 Blood Pressure 104/60 104/60 Pulse Oximetry 92 L 93 L 93 L 11/09/18 20:00 11/09/18 22:00 11/10/18 00:00 Temperature 97.4 F L 97.7 F Pulse Rate 85 88 85 Respiratory Rate 16 16 Blood Pressure 154/67 H 107/56 L Pulse Oximetry 97 92 L 11/10/18 04:00 11/10/18 07:05 11/10/18 07:45 Temperature 97.2 F L Pulse Rate 81 Respiratory Rate 18 18 Blood Pressure 133/62 Pulse Oximetry 94 L 93 L 11/10/18 08:00 11/10/18 08:10 Temperature 97.2 F L Pulse Rate 76 Respiratory Rate 17 Blood Pressure 158/78 H Pulse Oximetry 98 98 Intake & Output 11/09/18 11/10/18 11/10/18 18:59 06:59 18:59 Intake Total 2064 Output Total 100 / 100 Balance -100 / -100 2064 Weight 43 kg Intake: IV 1914 Azactam Inj 2 GM In NS Inj 100 200 / 200 ML @ 100 mls/hr IV.SIG Q8H [facility] Rx#:[id number] Doxy 100 Inj 100 MG In NS Inj 100 / 100 100 ML @ 100 mls/hr IV.SIG Q12H [facility] Rx#:[id number] NS Inj 1,000 ML @ 1000 mls/hr 1000 / 1000 IV.SIG BOLUS [facility] Rx#:[id number] Vancomycin Inj 1,500 MG In NS 515 / 515 Inj 500 ML @ 250 mls/hr IV.SIG ONCE ONE Rx#:[id number] Flagyl 500 MG Inj 100 ML @ 100 100 / 100 mls/hr IV.SIG STAT STA Rx#: [id number] Oral Supplement 150 / 150 Output: Urine 100 / 100 Other: # Voids 1 Date of Last Bowel Movement 11/09/18 11/10/18 Weight On Admission 51.3 kg Narrative: GENERAL: Alert, NAD. Cachectic and frail appearance. SKIN: Warm and dry. Facial laceration noted. HEAD: Normocephalic. Laceration above right eyebrow. EYES: No scleral icterus. No injection or drainage. NECK: Supple, trachea midline. No JVD or lymphadenopathy. CARDIOVASCULAR: Regular rate and rhythm without murmurs, gallops, or rubs. RESPIRATORY: Moderate air entry, coarse breath sounds bilaterally. No accessory muscle use. GASTROINTESTINAL: Abdomen soft, non-tender, nondistended. MUSCULOSKELETAL: No cyanosis, or edema. BACK: Nontender without obvious deformity. No CVA tenderness. Results Labs CBC & Chem 7: 11/10/18 05:00 11/10/18 05:00 Imaging Impressions Cervical Spine CT 11/09/18 17:00 CONCLUSION: 1. Advanced multilevel degenerative changes. 2. Posterior disc osteophyte complexes without canal stenosis. 3. No acute fracture. Chest X-Ray 11/09/18 17:00 CONCLUSION: Bilateral pulmonary infiltrates greater throughout the left lung. Small left pleural effusion Head CT 11/09/18 17:00 CONCLUSION: 1. Cerebral atrophy. 2. No intraparenchymal hemorrhage. 3. Bilateral sinus disease . . Face CT 11/09/18 17:02 CONCLUSION: 1. Nasal bone fractures. 2. Right frontal scalp swelling and suspected laceration. 3. Sinus disease. Caprini VTE Risk Assessment Caprini VTE Risk Assessment: Moderate/High Risk (score >= 2) Caprini Risk Assessment Model: Point Value = 1 Point Value = 2 Point Value = 3 Point Value = 5 Age 41-60 Minor surgery BMI > 25 kg/m2 Swollen legs Varicose veins or History of unexplained or recurrent spontaneous Oral contraceptives or hormone replacement Sepsis (< 1 month) Serious lung disease, including pneumonia (< 1 month) Abnormal pulmonary function Acute myocardial infarction Congestive heart failure (< 1 month) History of inflammatory bowel disease Medical patient at bed rest Age 61-74 Arthroscopic surgery Major open surgery (> 45 min) Laparoscopic surgery (> 45 min) Malignancy Confined to bed (> 72 hours) Immobilizing plaster cast Central venous access Age >= 75 History of VTE Family history of VTE Factor V Leiden Prothrombin [id number] Lupus anticoagulant Anticardiolipin antibodies Elevated serum homocysteine Heparin-induced thrombocytopenia Other congenital or acquired thrombophilia Stroke (< 1 month) Elective arthroplasty Hip, pelvis, or leg fracture Acute spinal cord injury (< 1 month) Prophylaxis Regimen: Total Risk Factor Score Risk Level Prophylaxis Regimen 0-1 Low Early ambulation 2 Moderate Order ONE of the following: *Sequential Compression Device (SCD) *Heparin 5000 units SQ BID 3-4 Higher Order ONE of the following medications: *Heparin 5000 units SQ TID *Enoxaparin/Lovenox 40 mg SQ daily (WT < 150 kg, CrCl > 30 mL/min) *Enoxaparin/Lovenox 30 mg SQ daily (WT < 150 kg, CrCl > 10-29 mL/min) *Enoxaparin/Lovenox 30 mg SQ BID (WT < 150 kg, CrCl > 30 mL/min) AND/OR *Sequential Compression Device (SCD) 5 or more Highest Order ONE of the following medications: *Heparin 5000 units SQ TID (Preferred with Epidurals) *Enoxaparin/Lovenox 40 mg SQ daily (WT < 150 kg, CrCl > 30 mL/min) *Enoxaparin/Lovenox 30 mg SQ daily (WT < 150 kg, CrCl > 10-29 mL/min) *Enoxaparin/Lovenox 30 mg SQ BID (WT < 150 kg, CrCl > 30 mL/min) AND *Sequential Compression Device (SCD) Assessment and Plan Plan Mr. Mccann is a pleasant 78 year old male with a history of O2 dependent chronic respiratory failure who presented to the ED after he was found on the bathroom floor at around 9AM on 11/09/2018. His daughter saw him at around 10: 30PM on 11/08/2018. ED work up indicates possible bilateral pulmonary infiltrates. WBC 33.4K. Acute bilateral pneumonia, Community acquired Chronic respiratory failure - O2 dependent. -Patient is allergic to PCN. Currently on Aztreonam and Doxycycline. -If he clinically improves and leukocytosis improves as well, he can likely be discharged on Doxycycline alone. -Labs in the AM. -Maintain 2-3L of O2 via [place] Fall -Patient has had frequent falls. He appears very cachectic and frail. -We will request PT and OT consult. -Patient will likely need rehab. Chronic malnutrition BPH Hyperlipidemia - BMI 14.8. Continue lipitor, Flomax and Mirtazapine. Chronic back pain -[place] PRN. Full code. Heparin SQ. H&P: Quality VTE Deep Vein Thrombosis/Pulmonary Embolism Present on Admission: No
[2018-11-10] MEDS: Sod Chloride 0.9% Inj 1,000 ML IV.CONT SCH (15:28)
[2018-11-10] MEDS: Mirtazapine 15 MG Tablet PO SCH (20:50)
[2018-11-10] MEDS: Temazepam 15 MG Capsule PO PRN (22:51)
[2018-11-11] MEDS: Aztreonam Inj 2 GM in Sodium Chloride 0.9% Inj 100 ML IV.SIG SCH ×5 (02:38→17:07)
[2018-11-11] MEDS: Heparin - SQ 10,000 UNITS/ML Vial SQ SCH ×5 (04:51→21:04)
--- NOTE | 2018-11-11 06:35 | ECG ---
Date Performed: 11/09/2018 Time Performed: 17:26:27 PTAGE: 78 years EKG: Sinus rhythm POSSIBLE LEFT ATRIAL ENLARGEMENT BORDERLINE ECG PREVIOUS TRACING : 04/15/2018 10.06 Compared to previous tracing, Anterior T-waves appear more prominent DOCTOR: Yunior Salgado Interpretating Date/Time 11/11/2018 06:34:12
[2018-11-11 06:37] LABS: Baso % (Auto) 0.1 % (0.0-2.0); Eos # (Auto) 0.1 th/mm3 (0.0-0.4); Eos % (Auto) 0.3 % (0.0-4.0); Hematocrit 31.4 % (39.0-51.0); Lymph # (Auto) 0.6 th/mm3 (1.0-4.8); Lymph % (Auto) 2.3 % (9.0-44.0); Mean Corpuscular HGB Conc 31.8 % (32.0-36.0); Mean Corpuscular Hemoglobin 28.3 pg (27.0-34.0); Mean Platelet Volume 7.5 fL (7.0-11.0); Mono # (Auto) 0.9 th/mm3 (0.0-0.9); Mono % (Auto) 3.1 % (0.0-8.0); Neut # (Auto) 26.1 th/mm3 (1.8-7.7); Neut % (Auto) 94.2 % (16.0-70.0); Platelet Count 408 th/mm3 (150-450); Red Blood Count 3.52 mil/mm3 (4.50-5.90); Red Cell Distribution Width 14.2 % (11.6-17.2); White Blood Count 27.7 th/mm3 (4.0-11.0)
[2018-11-11 07:05] LABS: Anion Gap 6 meq/L (5-15); Blood Urea Nitrogen 21 mg/dL (7-18); Calcium 8.7 mg/dL (8.5-10.1); Carbon Dioxide 28.2 meq/L (21.0-32.0); Chloride 107 meq/L (98-107); Glomerular Filtration Rate Greater Than 89 mL/min (>89); Glucose,Random 93 mg/dL (74-106); Potassium 3.6 meq/L (3.5-5.1); Sodium 141 meq/L (136-145)
[2018-11-11] MEDS: Senna/Docusate Sodium 8.6/50 MG Tablet PO SCH (08:46)
[2018-11-11] MEDS: Sucralfate 1 GM Tablet PO SCH ×4 (08:50→21:07)
[2018-11-11] MEDS: Sod Chloride 0.9% Inj 1,000 ML IV.CONT SCH (08:50)
--- NOTE | 2018-11-11 11:18 | P.PNIM ---
Subjective Interval history: Follow-up bilateral community-acquired pneumonia November 11, 2018patient seen and examined, complains of back pain along with some shortness of breath. Currently afebrile. Physical Exam Vital signs: Vital Signs 11/10/18 12:00 11/10/18 16:00 11/10/18 16:52 Temperature 97.0 F L 97.6 F Pulse Rate 104 H 96 H 80 Respiratory Rate 17 17 Blood Pressure 144/69 H 155/85 H Pulse Oximetry 97 97 11/10/18 20:00 11/10/18 20:51 11/11/18 00:00 Temperature 97.0 F L 97 F L Pulse Rate 78 87 Respiratory Rate 20 20 Blood Pressure 166/76 H 179/87 H Pulse Oximetry 97 95 96 11/11/18 00:02 11/11/18 04:00 11/11/18 04:05 Temperature 97 F L Pulse Rate 88 88 82 Respiratory Rate 20 Blood Pressure 156/76 H Pulse Oximetry 97 11/11/18 07:35 11/11/18 08:00 Temperature 97.2 F L Pulse Rate 81 Respiratory Rate 18 Blood Pressure 157/78 H Pulse Oximetry 94 L 94 L Intake & Output 11/10/18 11/11/18 11/11/18 18:59 06:59 18:59 Intake Total 2380 / 2380 820 / 820 580 / 580 Balance 2380 / 2380 820 / 820 580 / 580 Weight 42.3 kg Intake: IV 1300 / 1300 820 / 820 580 / 580 NS Inj 1,000 ML @ 70 mls/hr IV. 1000 / 1000 620 / 620 380 / 380 CONT .[id number] [facility] Rx#: [id number] Azactam Inj 2 GM In NS Inj 100 200 / 200 100 / 100 100 / 100 ML @ 100 mls/hr IV.SIG Q8H [facility] Rx#:[id number] Doxy 100 Inj 100 MG In NS Inj 100 / 100 100 / 100 100 / 100 100 ML @ 100 mls/hr IV.SIG Q12H [facility] Rx#:[id number] Oral 1080 / 1080 Other: # Voids 5 5 # Incontinent Voids 2 Date of Last Bowel Movement 11/10/18 11/10/18 # Bowel Movements 3 Narrative: GENERAL: Alert, NAD. Cachectic and frail appearance. SKIN: Warm and dry. Facial laceration noted. HEAD: Normocephalic. Laceration above right eyebrow. EYES: No scleral icterus. No injection or drainage. NECK: Supple, trachea midline. No JVD or lymphadenopathy. CARDIOVASCULAR: Regular rate and rhythm without murmurs, gallops, or rubs. RESPIRATORY: Moderate air entry, coarse breath sounds bilaterally. No accessory muscle use. GASTROINTESTINAL: Abdomen soft, non-tender, nondistended. MUSCULOSKELETAL: No cyanosis, or edema. BACK: Nontender without obvious deformity. No CVA tenderness. Results Labs CBC & Chem 7: 11/11/18 05:55 11/11/18 05:55 Labs: Microbiology 11/09/18 17:10 Blood - Peripheral Aerobic Blood Culture - Preliminary No growth in 2 days 11/09/18 17:10 Blood - Peripheral Anaerobic Blood Culture - Preliminary No growth in 2 days 11/09/18 17:15 Blood - Peripheral Aerobic Blood Culture - Preliminary No growth in 2 days 11/09/18 17:15 Blood - Peripheral Anaerobic Blood Culture - Preliminary No growth in 2 days Assessment and Plan Plan 78-year-old man with Bilateral pneumonia, Community acquired Chronic respiratory failure - O2 dependent. -Currently on Aztreonam and Doxycycline. -Maintain 2-3L of O2 via [place] Fall -PT/OT to treat and eval -Fall precautions Chronic malnutrition BPH Hyperlipidemia - Continue Lipitor, Flomax and Mirtazapine. Chronic back pain -[place] PRN. DVT prophylaxis: Bilateral SCDs Progress Note: Quality VTE Deep Vein Thrombosis/Pulmonary Embolism Present on Admission: No
[2018-11-11] MEDS: Temazepam 15 MG Capsule PO PRN (21:03)
[2018-11-11] MEDS: Mirtazapine 15 MG Tablet PO SCH (21:04)
[2018-11-12] MEDS: Aztreonam Inj 2 GM in Sodium Chloride 0.9% Inj 100 ML IV.SIG SCH ×4 (02:29→17:18)
[2018-11-12] MEDS: Heparin - SQ 10,000 UNITS/ML Vial SQ SCH ×4 (05:57→21:27)
[2018-11-12 06:21] LABS: Baso % (Auto) 0.2 % (0.0-2.0); Eos # (Auto) 0.1 th/mm3 (0.0-0.4); Eos % (Auto) 0.6 % (0.0-4.0); Hematocrit 33.8 % (39.0-51.0); Hemoglobin 11.1 gm/dL (13.0-17.0); Lymph # (Auto) 0.8 th/mm3 (1.0-4.8); Lymph % (Auto) 4.5 % (9.0-44.0); Mean Corpuscular HGB Conc 32.7 % (32.0-36.0); Mean Corpuscular Hemoglobin 29.5 pg (27.0-34.0); Mean Corpuscular Volume 90.1 fL (80.0-100.0); Mean Platelet Volume 7.7 fL (7.0-11.0); Mono # (Auto) 0.6 th/mm3 (0.0-0.9); Mono % (Auto) 3.7 % (0.0-8.0); Neut # (Auto) 15.6 th/mm3 (1.8-7.7); Platelet Count 449 th/mm3 (150-450); Red Blood Count 3.75 mil/mm3 (4.50-5.90); Red Cell Distribution Width 14.1 % (11.6-17.2); White Blood Count 17.1 th/mm3 (4.0-11.0)
[2018-11-12 06:28] LABS: Chloride 105 meq/L (98-107); Potassium 3.5 meq/L (3.5-5.1); Sodium 141 meq/L (136-145)
[2018-11-12 06:33] LABS: Calcium 8.5 mg/dL (8.5-10.1)
[2018-11-12 06:52] LABS: Alanine Aminotransferase 14 U/L (12-78); Albumin 2.3 g/dL (3.4-5.0); Alkaline Phosphatase 96 U/L (45-117); Anion Gap 6 meq/L (5-15); Aspartate Aminotransferase 12 U/L (15-37); Blood Urea Nitrogen 14 mg/dL (7-18); Carbon Dioxide 30.2 meq/L (21.0-32.0); Glomerular Filtration Rate Greater Than 89 mL/min (>89); Glucose,Random 100 mg/dL (74-106); Total Protein 6.6 g/dL (6.4-8.2)
[2018-11-12] MEDS: Sucralfate 1 GM Tablet PO SCH ×4 (08:15→21:31)
--- NOTE | 2018-11-12 10:26 | P.PNIM ---
Subjective Interval history: Follow-up bilateral community-acquired pneumonia November 12, 2018patient seen and examined, he was working with physical therapy. Currently afebrile. Patient is adamant about going home. Leukocytosis improving. Physical Exam Vital signs: Vital Signs 11/11/18 12:00 11/11/18 14:28 11/11/18 18:15 Temperature 97.0 F L Pulse Rate 87 79 Respiratory Rate 15 Blood Pressure 190/90 H 148/77 H Pulse Oximetry 95 11/11/18 18:27 11/11/18 19:55 11/11/18 20:00 Temperature 99.1 F Pulse Rate 74 Respiratory Rate 24 Blood Pressure 148/88 H 173/83 H Pulse Oximetry 96 96 11/11/18 20:26 11/12/18 00:00 11/12/18 00:05 Temperature 99.0 F Pulse Rate 75 89 88 Respiratory Rate 24 Blood Pressure 141/74 H Pulse Oximetry 91 L 11/12/18 04:00 11/12/18 08:00 11/12/18 09:58 Temperature 97.6 F 97.6 F Pulse Rate 87 78 Respiratory Rate 24 22 Blood Pressure 137/77 140/76 Pulse Oximetry 96 96 96 Intake & Output 11/11/18 11/12/18 11/12/18 18:59 06:59 18:59 Intake Total 2760 / 2760 200 / 200 480 / 480 Output Total 2300 / 2300 2200 / 2200 300 / 300 Balance 460 / 460 -1999 / -1999 180 / 180 Weight 45 kg Intake: IV 1680 / 1680 200 / 200 NS Inj 1,000 ML @ 70 mls/hr IV. 1380 / 1380 CONT .[id number] [facility] Rx#: [id number] Azactam Inj 2 GM In NS Inj 100 200 / 200 100 / 100 ML @ 100 mls/hr IV.SIG Q8H [facility] Rx#:[id number] Doxy 100 Inj 100 MG In NS Inj 100 / 100 100 / 100 100 ML @ 100 mls/hr IV.SIG Q12H [facility] Rx#:[id number] Oral 1080 / 1080 480 / 480 Output: Urine 2300 / 2300 2200 / 2200 300 / 300 Other: Date of Last Bowel Movement 11/10/18 11/10/18 # Bowel Movements 0 Narrative: GENERAL: Alert, NAD. Cachectic and frail appearance. SKIN: Warm and dry. Facial laceration noted. HEAD: Normocephalic. Laceration above right eyebrow. EYES: No scleral icterus. No injection or drainage. NECK: Supple, trachea midline. No JVD or lymphadenopathy. CARDIOVASCULAR: Regular rate and rhythm without murmurs, gallops, or rubs. RESPIRATORY: Moderate air entry, coarse breath sounds bilaterally. No accessory muscle use. GASTROINTESTINAL: Abdomen soft, non-tender, nondistended. MUSCULOSKELETAL: No cyanosis, or edema. BACK: Nontender without obvious deformity. No CVA tenderness. Results Labs CBC & Chem 7: 11/12/18 05:20 11/12/18 05:20 Labs: Microbiology 11/09/18 17:10 Blood - Peripheral Aerobic Blood Culture - Preliminary No growth in 2 days 11/09/18 17:10 Blood - Peripheral Anaerobic Blood Culture - Preliminary No growth in 2 days 11/09/18 17:15 Blood - Peripheral Aerobic Blood Culture - Preliminary No growth in 2 days 11/09/18 17:15 Blood - Peripheral Anaerobic Blood Culture - Preliminary No growth in 2 days Assessment and Plan Plan 78-year-old man with Bilateral pneumonia, Community acquired Chronic respiratory failure - O2 dependent. -Currently on Aztreonam and Doxycycline. -Maintain 2-3L of O2 via [place] -Leukocytosis improving Fall -PT/OT to treat and eval -Fall precautions Chronic malnutrition BPH Hyperlipidemia - Continue Lipitor, Flomax and Mirtazapine. Chronic back pain -[place] PRN. DVT prophylaxis: Bilateral SCDs Progress Note: Quality VTE Deep Vein Thrombosis/Pulmonary Embolism Present on Admission: No
[2018-11-12] MEDS: Mirtazapine 15 MG Tablet PO SCH (21:14)
[2018-11-12] MEDS: Temazepam 15 MG Capsule PO PRN (21:19)
[2018-11-13] MEDS: Aztreonam Inj 2 GM in Sodium Chloride 0.9% Inj 100 ML IV.SIG SCH ×4 (01:19→17:13)
[2018-11-13] MEDS: Heparin - SQ 10,000 UNITS/ML Vial SQ SCH ×3 (05:23→21:48)
[2018-11-13 07:31] LABS: Baso % (Auto) 0.3 % (0.0-2.0); Eos # (Auto) 0.2 th/mm3 (0.0-0.4); Eos % (Auto) 1.8 % (0.0-4.0); Hematocrit 32.6 % (39.0-51.0); Hemoglobin 10.9 gm/dL (13.0-17.0); Lymph # (Auto) 0.7 th/mm3 (1.0-4.8); Lymph % (Auto) 6.8 % (9.0-44.0); Mean Corpuscular HGB Conc 33.3 % (32.0-36.0); Mean Corpuscular Hemoglobin 29.3 pg (27.0-34.0); Mean Corpuscular Volume 87.9 fL (80.0-100.0); Mean Platelet Volume 7.4 fL (7.0-11.0); Mono # (Auto) 0.7 th/mm3 (0.0-0.9); Mono % (Auto) 7.1 % (0.0-8.0); Neut # (Auto) 8.8 th/mm3 (1.8-7.7); Platelet Count 434 th/mm3 (150-450); Red Blood Count 3.71 mil/mm3 (4.50-5.90); Red Cell Distribution Width 13.6 % (11.6-17.2); White Blood Count 10.4 th/mm3 (4.0-11.0)
[2018-11-13 07:44] LABS: Chloride 103 meq/L (98-107); Potassium 3.4 meq/L (3.5-5.1); Sodium 139 meq/L (136-145)
[2018-11-13 07:51] LABS: Albumin 2.3 g/dL (3.4-5.0); Anion Gap 6 meq/L (5-15); Blood Urea Nitrogen 14 mg/dL (7-18); Calcium 8.6 mg/dL (8.5-10.1); Carbon Dioxide 29.7 meq/L (21.0-32.0); Glucose,Random 100 mg/dL (74-106)
[2018-11-13 07:54] LABS: Alanine Aminotransferase 15 U/L (12-78); Aspartate Aminotransferase 13 U/L (15-37); Glomerular Filtration Rate Greater Than 89 mL/min (>89)
[2018-11-13 07:55] LABS: Total Protein 6.4 g/dL (6.4-8.2)
[2018-11-13 07:57] LABS: Alkaline Phosphatase 87 U/L (45-117)
[2018-11-13] MEDS: Sucralfate 1 GM Tablet PO SCH ×4 (08:42→22:26)
[2018-11-13 09:00] LABS: Platelet Estimate Normal (Normal); Platelet Morphology Normal (Normal)
--- NOTE | 2018-11-13 12:51 | P.PNIM ---
Subjective Interval history: Follow-up bilateral community-acquired pneumonia November 13, 2018patient seen and examined, reports improvement of shortness of breath. Patient is now willing to go to SNF. Daughter and son-in-law by the bedside. Physical Exam Vital signs: Vital Signs 11/12/18 16:00 11/12/18 17:54 11/12/18 18:24 Temperature 98.3 F Pulse Rate 79 84 Respiratory Rate 20 Blood Pressure 172/77 H 148/88 H Pulse Oximetry 96 11/12/18 20:00 11/12/18 21:38 11/13/18 00:00 Temperature 97.9 F 97.2 F L Pulse Rate 75 75 Respiratory Rate 22 20 Blood Pressure 166/88 H 144/76 H Pulse Oximetry 97 95 96 11/13/18 04:00 11/13/18 07:00 11/13/18 08:00 Temperature 97.8 F 98.3 F Pulse Rate 78 100 H Respiratory Rate 22 18 Blood Pressure 146/74 H 127/86 Pulse Oximetry 95 95 96 Intake & Output 11/12/18 11/13/18 11/13/18 18:59 06:59 18:59 Intake Total 2240 / 2240 200 / 200 218 / 218 Output Total 1200 / 1200 250 / 250 Balance 1040 / 1040 -50 / -50 218 / 218 Weight 43.9 kg Intake: IV 300 / 300 200 / 200 100 / 100 Azactam Inj 2 GM In NS Inj 100 200 / 200 100 / 100 100 / 100 ML @ 100 mls/hr IV.SIG Q8H [facility] Rx#:[id number] Doxy 100 Inj 100 MG In NS Inj 100 / 100 100 / 100 100 ML @ 100 mls/hr IV.SIG Q12H [facility] Rx#:[id number] Oral 1939 / 0 118 / 118 Output: Urine 1200 / 1200 250 / 250 Other: # Voids 3 1 Date of Last Bowel Movement 11/10/18 # Bowel Movements 1 Narrative: GENERAL: Alert, NAD. Cachectic and frail appearance. SKIN: Warm and dry. Facial laceration noted. HEAD: Normocephalic. Laceration above right eyebrow. EYES: No scleral icterus. No injection or drainage. NECK: Supple, trachea midline. No JVD or lymphadenopathy. CARDIOVASCULAR: Regular rate and rhythm without murmurs, gallops, or rubs. RESPIRATORY: Moderate air entry, coarse breath sounds bilaterally. No accessory muscle use. GASTROINTESTINAL: Abdomen soft, non-tender, nondistended. MUSCULOSKELETAL: No cyanosis, or edema. BACK: Nontender without obvious deformity. No CVA tenderness. Results Labs CBC & Chem 7: 11/13/18 06:55 11/13/18 06:55 Labs: Microbiology 11/09/18 17:10 Blood - Peripheral Aerobic Blood Culture - Preliminary No growth in 4 days 11/09/18 17:10 Blood - Peripheral Anaerobic Blood Culture - Preliminary No growth in 4 days 11/09/18 17:15 Blood - Peripheral Aerobic Blood Culture - Preliminary No growth in 4 days 11/09/18 17:15 Blood - Peripheral Anaerobic Blood Culture - Preliminary No growth in 4 days Assessment and Plan Plan 78-year-old man with Bilateral pneumonia, Community acquired Chronic respiratory failure - O2 dependent. -Currently on Aztreonam and Doxycycline. Will likely discharge on p.o. antibiotics in a.m. -Maintain 2-3L of O2 via [place] -Leukocytosis resolved Fall -PT/OT to treat and eval -Fall precautions Chronic malnutrition BPH Hyperlipidemia - Continue Lipitor, Flomax and Mirtazapine. Chronic back pain -[place] PRN. DVT prophylaxis: Bilateral SCDs Progress Note: Quality VTE Deep Vein Thrombosis/Pulmonary Embolism Present on Admission: No
[2018-11-13] MEDS: Mirtazapine 15 MG Tablet PO SCH (21:48)
[2018-11-13] MEDS: Temazepam 15 MG Capsule PO PRN (23:22)
[2018-11-14] MEDS: Aztreonam Inj 2 GM in Sodium Chloride 0.9% Inj 100 ML IV.SIG SCH ×3 (02:04→17:20)
[2018-11-14] MEDS: Heparin - SQ 10,000 UNITS/ML Vial SQ SCH ×3 (06:50→22:17)
--- NOTE | 2018-11-14 10:12 | P.PNIM ---
Subjective Interval history: Follow-up bilateral community-acquired pneumonia/significant wheezing on exam November 14, 2018patient seen and examined, although he reports improvement of shortness of breath however patient now wheezing on exam. Physical Exam Vital signs: Vital Signs 11/13/18 12:00 11/13/18 16:00 11/13/18 19:40 Temperature 97.8 F 97.1 F L Pulse Rate 94 H 84 Respiratory Rate 18 18 Blood Pressure 156/65 H 154/70 H Pulse Oximetry 98 97 95 11/13/18 20:00 11/13/18 21:23 11/14/18 00:00 Temperature 98.7 F Pulse Rate 82 82 83 Respiratory Rate 18 Blood Pressure 134/79 Pulse Oximetry 95 11/14/18 00:32 11/14/18 03:55 11/14/18 04:31 Temperature 98.2 F 97.4 F L Pulse Rate 83 81 87 Respiratory Rate 18 18 Blood Pressure 154/83 H 159/75 H Pulse Oximetry 96 92 L 11/14/18 07:35 Temperature Pulse Rate Respiratory Rate Blood Pressure Pulse Oximetry 97 Intake & Output 11/13/18 11/14/18 11/14/18 18:59 06:59 18:59 Intake Total 318 / 318 200 / 200 Output Total 875 / 875 200 / 200 Balance -557 / -557 0 / 0 Intake: IV 200 / 200 200 / 200 Azactam Inj 2 GM In NS Inj 100 100 / 100 100 / 100 ML @ 100 mls/hr IV.SIG Q8H [facility] Rx#:[id number] Doxy 100 Inj 100 MG In NS Inj 100 / 100 100 / 100 100 ML @ 100 mls/hr IV.SIG Q12H [facility] Rx#:[id number] Oral 118 / 118 Output: Urine 875 / 875 200 / 200 Other: # Voids 1 3 Date of Last Bowel Movement 11/10/18 # Bowel Movements 1 Narrative: GENERAL: Alert, NAD. Cachectic and frail appearance. SKIN: Warm and dry. Facial laceration noted. HEAD: Normocephalic. Laceration above right eyebrow. EYES: No scleral icterus. No injection or drainage. NECK: Supple, trachea midline. No JVD or lymphadenopathy. CARDIOVASCULAR: Regular rate and rhythm without murmurs, gallops, or rubs. RESPIRATORY: Moderate air entry, coarse breath sounds bilaterally. No accessory muscle use.+wheezings GASTROINTESTINAL: Abdomen soft, non-tender, nondistended. MUSCULOSKELETAL: No cyanosis, or edema. BACK: Nontender without obvious deformity. No CVA tenderness. Results Labs CBC & Chem 7: 11/13/18 06:55 11/13/18 06:55 Labs: Microbiology 11/09/18 17:10 Blood - Peripheral Aerobic Blood Culture - Preliminary No growth in 4 days 11/09/18 17:10 Blood - Peripheral Anaerobic Blood Culture - Preliminary No growth in 4 days 11/09/18 17:15 Blood - Peripheral Aerobic Blood Culture - Preliminary No growth in 4 days 11/09/18 17:15 Blood - Peripheral Anaerobic Blood Culture - Preliminary No growth in 4 days Assessment and Plan Plan 78-year-old man with Bilateral pneumonia, Community acquired Chronic respiratory failure - O2 dependent. -Currently on Aztreonam and Doxycycline. Will likely discharge on p.o. antibiotics in a.m November 15, 2018 Start Solu-Medrol 40 mg IV every 12H,Symbicort and continue with DuoNeb as needed -Maintain 2-3L of O2 via [place] -Leukocytosis resolved Fall -PT/OT to treat and eval -Fall precautions Chronic malnutrition BPH Hyperlipidemia - Continue Lipitor, Flomax and Mirtazapine. Chronic back pain -[place] PRN. DVT prophylaxis: Bilateral SCDs Progress Note: Quality VTE Deep Vein Thrombosis/Pulmonary Embolism Present on Admission: No
[2018-11-14] MEDS: Sucralfate 1 GM Tablet PO SCH ×4 (10:49→22:56)
[2018-11-14] MEDS: MethylPREDNISolone Sod Succinate Inj 40 MG/ML Vial IV.PUSH SCH ×3 (10:52→22:14)
[2018-11-14] MEDS: Budesonide-Formoterol 160/4.5 MCG 6 GM Inhaler INH SCH ×2 (13:05→22:13)
[2018-11-14] MEDS: Mirtazapine 15 MG Tablet PO SCH (22:08)
[2018-11-14] MEDS: Temazepam 15 MG Capsule PO PRN (22:24)
[2018-11-15] MEDS: Aztreonam Inj 2 GM in Sodium Chloride 0.9% Inj 100 ML IV.SIG SCH ×2 (02:14→09:26)
[2018-11-15] MEDS: Heparin - SQ 10,000 UNITS/ML Vial SQ SCH (05:40)
[2018-11-15 06:18] LABS: Baso % (Auto) 0.1 % (0.0-2.0); Hematocrit 33.3 % (39.0-51.0); Lymph # (Auto) 0.3 th/mm3 (1.0-4.8); Lymph % (Auto) 2.8 % (9.0-44.0); Mean Corpuscular HGB Conc 33.1 % (32.0-36.0); Mean Corpuscular Hemoglobin 29.1 pg (27.0-34.0); Mean Corpuscular Volume 87.9 fL (80.0-100.0); Mean Platelet Volume 7.6 fL (7.0-11.0); Mono # (Auto) 0.1 th/mm3 (0.0-0.9); Mono % (Auto) 1.4 % (0.0-8.0); Neut # (Auto) 9.2 th/mm3 (1.8-7.7); Neut % (Auto) 95.7 % (16.0-70.0); Platelet Count 530 th/mm3 (150-450); Red Blood Count 3.79 mil/mm3 (4.50-5.90); Red Cell Distribution Width 14.1 % (11.6-17.2); White Blood Count 9.6 th/mm3 (4.0-11.0)
[2018-11-15 06:52] LABS: Alanine Aminotransferase 22 U/L (12-78); Albumin 2.3 g/dL (3.4-5.0); Alkaline Phosphatase 87 U/L (45-117); Anion Gap 5 meq/L (5-15); Aspartate Aminotransferase 12 U/L (15-37); Blood Urea Nitrogen 14 mg/dL (7-18); Carbon Dioxide 32.2 meq/L (21.0-32.0); Chloride 103 meq/L (98-107); Glomerular Filtration Rate Greater Than 89 mL/min (>89); Glucose,Random 153 mg/dL (74-106); Potassium 4.5 meq/L (3.5-5.1); Sodium 140 meq/L (136-145); Total Protein 6.8 g/dL (6.4-8.2)
[2018-11-15] MEDS: Budesonide-Formoterol 160/4.5 MCG 6 GM Inhaler INH SCH (08:06)
[2018-11-15] MEDS: Sucralfate 1 GM Tablet PO SCH ×2 (08:13→11:23)
[2018-11-15] MEDS: MethylPREDNISolone Sod Succinate Inj 40 MG/ML Vial IV.PUSH SCH (08:14)
[2018-11-15 09:19] VITALS: O2SAT 94
[2018-11-15 09:29] VITALS: BP 162/85; RESP 20; TEMP 96.3
--- NOTE | 2018-11-15 11:04 | P.PNIM ---
Subjective Interval history: Follow-up Bilateral pulmonary pneumonia November 15, 2018patient seen and examined, reports significant improvement of shortness of breath. Currently afebrile. Physical Exam Vital signs: Vital Signs 11/14/18 12:00 11/14/18 16:00 11/14/18 20:00 Temperature 97.6 F 97.9 F 97.0 F L Pulse Rate 82 92 H 91 H Respiratory Rate 20 20 16 Blood Pressure 139/69 144/83 H 163/76 H Pulse Oximetry 93 L 95 98 11/14/18 20:30 11/15/18 00:00 11/15/18 00:15 Temperature 97.3 F L Pulse Rate 88 80 95 H Respiratory Rate 20 Blood Pressure 148/77 H Pulse Oximetry 96 11/15/18 02:13 11/15/18 04:00 11/15/18 07:00 Temperature 98.0 F Pulse Rate 79 86 Respiratory Rate 20 22 Blood Pressure 158/78 H Pulse Oximetry 95 11/15/18 08:00 11/15/18 08:15 Temperature 96.3 F L Pulse Rate 90 Respiratory Rate 20 Blood Pressure 162/85 H Pulse Oximetry 94 L 94 L Intake & Output 11/14/18 11/15/18 11/15/18 18:59 06:59 18:59 Intake Total 480 / 480 300 / 300 200 / 200 Output Total 100 / 100 100 / 100 Balance 380 / 380 200 / 200 200 / 200 Weight 45 kg Intake: IV 200 / 200 300 / 300 200 / 200 Azactam Inj 2 GM In NS Inj 100 100 / 100 200 / 200 100 / 100 ML @ 100 mls/hr IV.SIG Q8H [facility] Rx#:[id number] Doxy 100 Inj 100 MG In NS Inj 100 / 100 100 / 100 100 / 100 100 ML @ 100 mls/hr IV.SIG Q12H S[facility] Rx#:[id number] Oral 280 / 280 Output: Urine 100 / 100 100 / 100 Other: # Voids 2 1 Date of Last Bowel Movement 11/14/18 11/14/18 # Bowel Movements 2 1 Narrative: GENERAL: Alert, NAD. Cachectic and frail appearance. SKIN: Warm and dry. Facial laceration noted. HEAD: Normocephalic. Laceration above right eyebrow. EYES: No scleral icterus. No injection or drainage. NECK: Supple, trachea midline. No JVD or lymphadenopathy. CARDIOVASCULAR: Regular rate and rhythm without murmurs, gallops, or rubs. RESPIRATORY: Moderate air entry, coarse breath sounds bilaterally. No accessory muscle use. GASTROINTESTINAL: Abdomen soft, non-tender, nondistended. MUSCULOSKELETAL: No cyanosis, or edema. BACK: Nontender without obvious deformity. No CVA tenderness. Results Labs CBC & Chem 7: 11/15/18 05:27 11/15/18 05:27 Labs: Microbiology 11/09/18 17:10 Blood - Peripheral Aerobic Blood Culture - Final No growth in 5 days 11/09/18 17:10 Blood - Peripheral Anaerobic Blood Culture - Final No growth in 5 days 11/09/18 17:15 Blood - Peripheral Aerobic Blood Culture - Final No growth in 5 days 11/09/18 17:15 Blood - Peripheral Anaerobic Blood Culture - Final No growth in 5 days Assessment and Plan Plan 78-year-old man with Bilateral pneumonia, Community acquired Chronic respiratory failure - O2 dependent. -Currently on Aztreonam and Doxycycline. Will likely discharge on p.o. antibiotic Levaquin Currently on Solu-Medrol 40 mg IV every 12H,Symbicort and continue with DuoNeb as needed Will switch to p.o. prednisone -Maintain 2-3L of O2 via NC -Leukocytosis resolved Fall -PT/OT to treat and eval -Fall precautions Chronic malnutrition BPH Hyperlipidemia - Continue Lipitor, Flomax and Mirtazapine. Chronic back pain -[place] PRN. DVT prophylaxis: Bilateral SCDs [id number] Prescription Drug Monitoring Database has been queried and verified prior to prescribing the controlled substance. Acute pain exception. This patient has normal, predicted, physiological, and time limited response to an adverse mechanical stimulus associated with surgery, trauma, or acute illness as described in my notes. There is a lack of alternative treatment options other than to include the prescribed narcotic treatment for this condition. Progress Note: Quality VTE Deep Vein Thrombosis/Pulmonary Embolism Present on Admission: No
--- NOTE | 2018-11-15 11:07 | P.DIET ---
Nutritional Evaluation Type of nutrition evaluation: initial (BMI screen) Subjective Subjective Comments: Pt picked up by RD 2/2 underweight BMI of 15.5. Objective - Diagnosis sepsis 2/2 pneumonia - Objective Body Mass Index: 15.5 Forbes body weight: 67 kg (148lbs) % IBW: 67 Energy Needs - Lower Range (kCal/kg): 40 Energy Needs - Upper Range (kCal/kg): 45 Lower Limit kCal/kg (kCals): 1,800 Upper Limit kCal/kg (kCals): 2,025 Lower Limit Protein Factor (Grams per Kg): 1.2 Upper Limit Protein Factor (Grams per Kg): 1.5 Lower Protein Needs (Protein): 54 Upper Protein Needs (Protein): 68 Dietitian Reviewed in Medical Record: Current diet, Curent medications, Intake & Output, Labs, Medical history Diet Order: Cardiac Oral Diet Intake Amount: Excellent 90%+ Objective Comments: PMH; O2 dependant respiratory failure Labs; reviewed Medications; solumedrol Assessment Assessment: BMI screen; Pt presents to ED after being found on the floor by family member and is currently at nutritional risk related to low BMI of 15.5. He is currently ordered for cardiac diet with PO intake 100% during stay. Will send pt Ensure Enlive nutritional supplement in efforts to support PO intake and minimize weight loss. Each human resource analyst of ensure enlive will provide 350kcal and 20g protein. Labs and medications reviewed, will continue to follow. Recommendations: 1. Ensure enlive TID 2. Monitor weight Dietitian to Monitor: Lab values, Supplement acceptance, Intake & Output, Diet tolerance, Weight change, PO Intake, Medical course
--- NOTE | 2018-11-15 11:09 | P.DS ---
DS: Providers Date of admission: 11/09/18 19:56 Primary care physician: Guillermo Frey MD Consults: 11/13/18 14:38 HUB Only Consult Order Routine Consulting Provider: [facility],[place] Brief History from admission: Mr. Mccann is a pleasant 78 year old male with a history of O2 dependent respiratory failure who was brought to the hospital after he was found on the bathroom floor by family members. Daughter at bedside gives a lot of the history. She saw him last at around 10:30PM on . Patient reports that at some point he went to the bathroom but does not recall much else. He was found on the bathroom floor at around 9AM on 2018. Head CT, cervical spine CT did not reveal any acute findings. Face CT shows nasal bone fractures. CXR shows bilateral infiltrates. His CBC shows WBC 33.4K. Although he has chronic cough, he does not mention any worsening of cough , fever or shortness of breath. Patient was started on abx in the ED. Past medical history: Chronic back pain, GERD, arthritis Past surgical history: Esophageal surgery Social history: No tobacco, alcohol or illicit drugs Family history: He was adopted. DS: Summary Patient admitted for respiratory failure and diagnosed with bilateral pulmonary community-acquired pneumonia for which she was started on IV antibiotics including Azactam and doxycycline. Vitals were monitored. Physical therapy was consulted. Patient had repair of facial laceration above the right eye on admissions. Hospitalization was complicated by exacerbation of COPD for which she was started on Solu-Medrol and treated with long-acting and short acting beta agonist. Was subsequently switched to p.o. prednisone. DVT and GI reflexes were provided. Patient was continued on treatment for other chronic medical conditions. Prior to discharge, patient's conditions improved and vitals remained stable. Will be discharged on p.o. Levaquin times 5 days. Patient will need to have his stitches removed on day 7-8 post laceration repair. Time Spent with Patient Total time spent providing and/or coordinating discharge services: Greater than 30 minutes Quality: VTE Deep Vein Thrombosis/Pulmonary Embolism Present on Admission: No Exam Narrative Exam Narrative: GENERAL: NAD SKIN: Warm and dry. laceration repair above right eye HEAD: Atraumatic. Normocephalic. EYES: Pupils equal and round. No scleral icterus. No injection or drainage. ENT: No nasal bleeding or discharge. Mucous membranes pink and moist. NECK: Trachea midline. No JVD. CARDIOVASCULAR: Regular rate and rhythm. RESPIRATORY: No accessory muscle use. Clear to auscultation. Breath sounds equal bilaterally. GASTROINTESTINAL: Abdomen soft, non-tender, nondistended. Hepatic and splenic margins not palpable. MUSCULOSKELETAL: Extremities without clubbing, cyanosis, or edema. No obvious deformities. NEUROLOGICAL: Awake and alert. No obvious cranial nerve deficits. Motor grossly within normal limits. Five out of 5 muscle strength in the arms and legs. Normal speech. PSYCHIATRIC: Appropriate mood and affect; insight and judgment normal. Results Procedures completed during hospitalization: None Labs on day of discharge: Labs from last 24 hours 11/15/18 11/15/18 05:27 05:27 CBC w Diff Auto diff final WBC 9.6 RBC 3.79 L Hgb 11.0 L Hct 33.3 L MCV 87.9 MCH 29.1 MCHC 33.1 RDW 14.1 Plt Count 530 H MPV 7.6 Neut % (Auto) 95.7 H Lymph % (Auto) 2.8 L [place]inger % (Auto) 1.4 Eos % (Auto) 0.0 Baso % (Auto) 0.1 Neut # (Auto) 9.2 H Lymph # (Auto) 0.3 L [place]inger # (Auto) 0.1 Eos # (Auto) 0.0 Baso # (Auto) 0.0 WBC Differential . Differential Comment . Sodium 140 Potassium 4.5 D Chloride 103 Carbon Dioxide 32.2 H Anion Gap 5 BUN 14 Creatinine 0.57 L Estimated GFR Greater than 89 Random Glucose 153 H Calcium 9.0 Total Bilirubin 0.2 AST 12 L ALT 22 Alkaline Phosphatase 87 Total Protein 6.8 Albumin 2.3 L Impressions ITS Impressions Cervical Spine CT 11/09/18 17:00 CONCLUSION: 1. Advanced multilevel degenerative changes. 2. Posterior disc osteophyte complexes without canal stenosis. 3. No acute fracture. Chest X-Ray 11/09/18 17:00 CONCLUSION: Bilateral pulmonary infiltrates greater throughout the left lung. Small left pleural effusion Head CT 11/09/18 17:00 CONCLUSION: 1. Cerebral atrophy. 2. No intraparenchymal hemorrhage. 3. Bilateral sinus disease . . Face CT 11/09/18 17:02 CONCLUSION: 1. Nasal bone fractures. 2. Right frontal scalp swelling and suspected laceration. 3. Sinus disease. Discharge Plan Discharge Disposition Patient Disposition: 03 Discharge to SNF Discharge Condition Condition: Fair Discharge Order Discharge Orders: Discharge Order (Routine); Ordered 11/15/18 Ordered By: Farhat Cabrera Physicians Team ED Provider: Cassius Carr ED Midlevel Provider: Delicia Tripathi Primary Care Provider: Guillermo Frey Attending Provider: Farhat Cabrera Other Providers: [facility],[place] Rxs /Orders / Referrals /Forms Prescriptions: New hydrocodone-acetaminophen 5-325 mg Tablet 1 tab PO Q4H PRN (Reason: PAIN 1-10) Qty: 6 RF: 0 budesonide-formoterol [Symbicort] 160-4.5 mcg/actuation Hfa Aerosol Inhaler 2 puff INH BID Qty: 1 RF: 0 albuterol sulfate [Ventolin HFA] 90 mcg/actuation HFA aerosol inhaler 2 inh INHALATION Q4-6H PRN (Reason: shortness of breath or wheezing) Qty: 18 RF: 0 ipratropium bromide [Atrovent HFA] 17 mcg/actuation HFA aerosol inhaler 2 inh INHALATION QID PRN (Reason: shortness of breath or wheezing) Qty: 12.9 RF: 0 levofloxacin [Levaquin] 750 mg tablet 750 mg PO DAILY 4 Days Qty: 4 RF: 0 prednisone 10 mg tablet 10 mg PO DAILY Qty: 7 RF: 0 Continue atorvastatin 20 mg Tablet 20 mg PO DAILY RF: 0 sucralfate 1 gram Tablet 1 g PO Q6H RF: 0 tamsulosin [Flomax] 0.4 mg Capsule 0.4 mg PO DAILY RF: 0 temazepam 30 mg Capsule 30 mg PO HS PRN (Reason: Sleep) RF: 0 mirtazapine 30 mg Tablet 30 mg PO DAILY RF: 0 Discontinued hydrocodone-acetaminophen 5-325 mg Tablet 1 tab PO Q4-6H PRN (Reason: Pain) RF: 0 Referrals: Guillermo Frey MD [Primary Care Provider] - See Instructions Discharge Interventions Interventions: Discharge Planning - Case Management Last Done: 11/13/18 15:19 Status ED Status: Left Department
[2018-11-15 13:04] VITALS: PULSE 99
== END 2018-11-15 13:26 | DRG 194 ==
LOC: PHEFT 15:09 → PHEDH 19:56 → PH3 21:15
PROVIDERS: ADMIT Hospitalist; ATTEND Hospitalist
CPT/HCPCS: 70450; 70486; 71010; 71045; 72125; 80048; 80053; 81001; 82550; 83520; 83605; 83735; 83880; 84443; 84484; 85025; 85610; 87040; 90765; 93005; 94664; 96365; 97110; 97116; 97162; 97166; 99285; J1644; J2920; J3370; J7030; J7040